=== PATIENT | male | born 1945 | race Caucasian/White ===

== ENCOUNTER → 2017-04-13 | Outpatient (CLI) | payer BC ==
[~2017-04-13] MED LIST: AMLO-110 PO; CHOL20007 PO; LANS15CA15 PO; LPT10 PO; MULTTAB58 PO; NEPA0.6D OPL; OMEG10007 PO; PRED1SUS3 OPL; PRED1SUS3 OPR; SERT50TA PO; ZOLP10TA6 PO
[2017-04-13 09:57] LABS: ALT/SGPT 25 U/L (12-78); AST/SGOT 16 U/L (15-37); BLOOD UREA NITROGEN 15 mg/dl (7-18); CALCIUM 9.2 mg/dl (8.5-10.1); CARBON DIOXIDE 29 mmol/L (21-32); CHLORIDE 108 mmol/L (98-107); CHOLESTEROL 163 mg/dl (0-200); CREATININE 0.96 mg/dl (0.60-1.40); GLUCOSE 93 mg/dl (70-99); POTASSIUM 3.8 mmol/L (3.5-5.1); SODIUM 143 mmol/L (136-145); TRIGLYCERIDES 99 mg/dl (0-150); VERY LOW DENSITY LIPOPROT CALC 20 mg/dl
[2017-04-13 10:01] LABS: ALKALINE PHOSPHATASE 84 U/L (45-117); CHOLESTEROL/HDL RATIO 2.9; HDL CHOLESTEROL 57 mg/dl; LDL CHOLESTEROL CALCULATED 86 mg/dl
--- NOTE | 2017-04-19 13:17 | CODING QUERY MEDICAL NECESSITY ---
SUPPORTING DIAGNOSIS NEEDED Dr. Craig, A supporting diagnosis is required for the test/procedure performed on this patient in order for us to be reimbursed by the patient's insurance. Please provide a supporting diagnosis for the following test/procedure listed below next to the test name along with your signature. *If there is no additional diagnosis for this patient that would support the following test/procedure please document that below next to the test/procedure. Test(s)/Procedure(s) that require a supporting diagnosis: * [id number] PSA DIAGNOSIS: DATE OF SERVICE: 04/13/17 Provider Signature: Date: Thank you [facility] Information Management Once completed, please kindly fax back to [phone] For questions please call [phone]
== END | disposition home or self-care (01) ==
LOC: C.LAB 07:57
PROVIDERS: ATTEND Internal Medicine
DX: M17.12 Unilateral primary osteoarthritis, left knee (principal); Z12.5 Encounter for screening for malignant neoplasm of prostate

== ENCOUNTER → 2017-05-27 | Day surgery (SDC) | payer BC ==
[2017-05-14 13:11] VITALS: Ht 170.2 cm; Wt 109.1 kg
[~2017-05-27] VITALS: Ht 170.2 cm; Wt 109.1 kg
[~2017-05-27] MED LIST changes: +LIDOCAINE HCL 2% 2 ML VIAL (20MG/ML) ONE; +MIDAZOLAM HCL 1 MG/ML 2ML VIAL ONE; -NEPA0.6D OPL; +ONDANSETRON INJ 2 MG/ML 2 ML VIAL ONE; -PRED1SUS3 OPL; -PRED1SUS3 OPR; +PROPOFOL IV EMULSION 10 MG/ML 20 ML VIAL IV ONE; +SODIUM CHLORIDE 0.9% 500ML 500 ML IV ONE
--- NOTE | 2017-05-27 13:58 | Endo History and Physical ---
History & Physical Date of Service: May 27, 2017. Chief Complaint: screening,history of polyps Referring Physician: Dr. Melquiades Craig History of Present Illness 71 yo CM who presents for screening colonoscopy. Past Medical History Reflux, High Cholesterol, Hypertension Past Surgical History Hx Cardiac Surgery: No Hx Internal Defibrillator: No Hx Pacemaker: No Hx Abdominal Surgery: Yes (APPY, HERNIA REPAIR X4) Hx of Implantable Prosthesis: No Hx Post-Op Nausea and Vomiting: No Hx Cancer Surgery: No Hx Thoracic Surgery: No Hx Orthopedic: Yes (RT TKA) Hx Urinary Tract Surgery: No Family History Polyp Social History Smoking Status: Never Smoker Hx Substance Use: No Hx Alcohol Use: No Allergies Coded Allergies: Telmisartan (Verified Allergy, Intermediate, Throat pain and fever, ) Bupropion (Verified Allergy, Unknown, TWITCHING/JITTERY, 05/14/17) Metoprolol (Verified Allergy, Unknown, TWITCHING, 05/14/17) Valsartan (Verified Allergy, Unknown, ., 05/14/17) Current Medications Reported Home Medications Medications Dose Route/Sig Max Daily Dose Days Date Category Vitamin D3 (Cholecalciferol) 2,000 Unit Tab 1 Tab PO QAM 05/14/17 Reported [place]-3 (Fish Oil) 1 Ea Cap 1 Cap PO QAM 05/14/17 Reported Multivitamin (Multiple Vitamin) 1 Tab Tab 1 Tab PO QAM 05/14/17 Reported Prevacid (Lansoprazole) 15 Mg Cap 15 Mg PO QAM 11/13/14 Reported Norvasc (Amlodipine Besylate) 5 Mg Tab 5 Mg PO QAM 11/13/14 Reported Atorvastatin Calcium (Atorvastatin) 10 Mg Tab 10 Mg PO QAM 11/13/14 Reported Zolpidem Tartrate 10 Mg Tab 10 Mg PO HS 11/13/14 Reported Zoloft (Sertraline HCl) 50 Mg Tab 75 Mg PO QAM 11/13/14 Reported Vital Signs Weight (Kilograms): 109.09 Height (Feet): 5 Height (Inches): 7 Physical Exam General Appearance: WD/WN, no apparent distress Respiratory/Chest: Auscultation: breath sounds normal Cardiovascular: Heart Auscultation: RRR Abdomen: Bowel Sounds: normal Inspection & Palpation: soft, non-distended, no tenderness, guarding & rebound Assessment and Plan Assessment: 71 yo CM who presents for screening colonoscopy. Plan: Proceed with colonoscopy.
--- NOTE | 2017-05-27 14:46 | Discharge Instructions ---
Endoscopy Patient Instructions Date / Procedure(s) Performed May 27, 2017. Colonoscopy Allergy Information Coded Allergies: Telmisartan (Verified Allergy, Intermediate, Throat pain and fever, ) Bupropion (Verified Allergy, Unknown, TWITCHING/JITTERY, 05/14/17) Metoprolol (Verified Allergy, Unknown, TWITCHING, 05/14/17) Valsartan (Verified Allergy, Unknown, ., 05/14/17) Discharge Date / Findings May 27, 2017. Colon polyp Diverticulosis Internal hemorrhoids Medication Instructions OK to resume all medications today as prescribed Reported Home Medications Medications Dose Route/Sig Max Daily Dose Days Date Category Vitamin D3 (Cholecalciferol) 2,000 Unit Tab 1 Tab PO QAM 05/14/17 Reported [place]-3 (Fish Oil) 1 Ea Cap 1 Cap PO QAM 05/14/17 Reported Multivitamin (Multiple Vitamin) 1 Tab Tab 1 Tab PO QAM 05/14/17 Reported Prevacid (Lansoprazole) 15 Mg Cap 15 Mg PO QAM 11/13/14 Reported Norvasc (Amlodipine Besylate) 5 Mg Tab 5 Mg PO QAM 11/13/14 Reported Atorvastatin Calcium (Atorvastatin) 10 Mg Tab 10 Mg PO QAM 11/13/14 Reported Zolpidem Tartrate 10 Mg Tab 10 Mg PO HS 11/13/14 Reported Zoloft (Sertraline HCl) 50 Mg Tab 75 Mg PO QAM 11/13/14 Reported Provider Instructions Activity Restrictions - No exercising or heavy lifting for 24 hours. - Do not drink alcohol the day of the procedure. - Do not drive a car or operate machinery until the day after the procedure. - Do not make any important decisions or sign important papers in 24 hours after the procedure. Following Day: - Return to full activity which may include returning to work/school. Diet Start your diet with liquids and light foods (jello, soup, juice, toast). Then eat your usual diet if not nauseated. Treatment For Common After Affects For mild abdominal pain, bloating, or excessive gas: - Rest - Eat lightly - Lie on right side Follow-Up Information Follow-up with Dr. Melquiades Craig as scheduled Anesthesia Information What You Should Know You have had a procedure that required some medicine to reduce anxiety and discomfort. This treatment is called moderate sedation. After receiving the treatment, you may be sleepy, but you will be able to breathe on your own. The effects of the treatment may last for several hours. Follow these instructions along with Activity/Diet recommendations noted above: * Do NOT do anything where dizziness or clumsiness would be dangerous. * Rest quietly at home today, then you can be up and about tomorrow. * Have a responsible person stay with you the rest of today. * You may have had an I.V. today. If so, you may take the dressing off later today. Recommendations Call your doctor if: * Trouble breathing * Continuous vomiting for more than 24 hours * Temperature above 101 degrees * Severe abdominal pain or bloating * Pain not relieved by pain medicine ordered * There is increased drainage or redness from any incision * A large amount of rectal bleeding greater than 2-3 tablespoons. (If you had a polyp/s removed or have hemorrhoids, a small amount of blood - from the rectum is to be expected.) * You have any unanswered questions or concerns. IN THE EVENT OF A SERIOUS EMERGENCY, GO TO THE NEAREST EMERGENCY ROOM Your discharge instructions were prepared by provider Eugene Fairbanks. Patient Instructions Signature Page Jf Linder Patient (or Guardian) Signature/Date: I have read and understand the instructions given to me by my caregivers. Caregiver/RN/Doctor Signature/Date: The above-named patient and/or guardian has received patient instructions on this date. + Original Patient Signature Page (only) stays with chart. Please make copy for patient.
--- NOTE | 2017-05-27 14:50 | GI REPORT ---
Procedure Date: 05/27/2017 2:26 PM Procedure: Colonoscopy Indications: Screening for colorectal malignant neoplasm Medicines: Monitored Anesthesia Care Complications: No immediate complications. Estimated Blood Loss: Estimated blood loss: none. Procedure: Pre-Anesthesia Assessment: - Prior to the procedure, a History and Physical was performed, and patient medications and allergies were reviewed. The patient's tolerance of previous anesthesia was also reviewed. The risks and benefits of the procedure and the sedation options and risks were discussed with the patient. All questions were answered, and informed consent was obtained. Prior Anticoagulants: The patient has taken no previous anticoagulant or antiplatelet agents. ASA Grade Assessment: II - A patient with mild systemic disease. After reviewing the risks and benefits, the patient was deemed in satisfactory condition to undergo the procedure. After I obtained informed consent, the scope was passed under direct vision. Throughout the procedure, the patient's blood pressure, pulse, and oxygen saturations were monitored continuously. The On-site loaner was introduced through the anus and advanced to the terminal ileum. The colonoscopy was performed without difficulty. The patient tolerated the procedure well. The quality of the bowel preparation was good. The terminal ileum, ileocecal valve, appendiceal orifice, and rectum were photographed. Findings: A 3 mm polyp was found in the descending colon. The polyp was sessile. The polyp was removed with a cold biopsy forceps. Resection and retrieval were complete. Multiple small-mouthed diverticula were found in the sigmoid colon. Non-bleeding internal hemorrhoids were found during retroflexion. The hemorrhoids were small. Impression: - One 3 mm polyp in the descending colon, removed with a cold biopsy forceps. Resected and retrieved. - Diverticulosis in the sigmoid colon. - Non-bleeding internal hemorrhoids. Recommendation: - Resume previous diet. - Continue present medications. - Repeat colonoscopy for surveillance based on pathology results. - Return to primary care physician as previously scheduled. Eugene Fairbanks, DO 05/27/2017 2:49:49 PM This report has been signed electronically. Note Initiated On: 05/27/2017 2:26 PM I attest to the content of the Intraoperative Record and orders documented therein, exceptions below
--- NOTE | 2017-05-27 15:01 | Anesthesiology Progress Note ---
Anesthesia Post Op Note Date & Time May 27, 2017 at 15:00 Vital Signs Pain Intensity: 0 Vital Signs Past 12 Hours Date Time Temp Pulse Resp B/P (MAP) Pulse Ox O2 Delivery O2 Flow Rate FiO2 05/27/17 14:49 71 16 136/69 (91) 95 Room Air 05/27/17 13:57 37 85 20 147/69 (95) 95 Room Air Notes Mental Status: alert / awake / arousable, participated in evaluation Pt Amnestic to Procedure: Yes Nausea / Vomiting: adequately controlled Pain: adequately controlled Airway Patency, RR, SpO2: stable & adequate BP & HR: stable & adequate Hydration State: stable & adequate Anesthetic Complications: no major complications apparent
[2017-05-27 15:20] VITALS: BP 120/71; PULSE 67; O2SAT 93
== END | disposition home or self-care (01) ==
LOC: C.GI 13:29
PROVIDERS: ATTEND Internal Medicine
DX: Z12.11 Encounter for screening for malignant neoplasm of colon (principal); D12.4 Benign neoplasm of descending colon; K64.8 Other hemorrhoids; K57.92 Diverticulitis of intestine, part unspecified, without perforation or abscess without bleeding

== ENCOUNTER 2017-09-11 00:15 | Observation (INO) | payer BC ==
[~2017-09-11] VITALS: Ht 170.2 cm; Wt 112.1 kg
[~2017-09-11 00:15] MED LIST changes: -AMLO-110 PO; +AMLO5TAB3 PO; -LIDOCAINE HCL 2% 2 ML VIAL (20MG/ML) ONE; -MIDAZOLAM HCL 1 MG/ML 2ML VIAL ONE; -ONDANSETRON INJ 2 MG/ML 2 ML VIAL ONE; -PROPOFOL IV EMULSION 10 MG/ML 20 ML VIAL IV ONE; -SODIUM CHLORIDE 0.9% 500ML 500 ML IV ONE
--- NOTE | 2017-09-11 00:15 | NUR ---
OBS: Patient is AAOX4 and resting comfortably in bed. Vitals are WNL with the exception of low O2 sats when patient is taking dilaudid for pain. Patient states his pain has increased since this evening to right flank and back and rates pain at 4 out of 10. Patient refused pain medication at this time. Patient is NPO except for meds. Patient is independent in room and is able to void into urinal or use strainer for urinating. Patient has NSS + 20 KCl running at 100 in the right AC. IV site is patent and asymptomatic. Patient's discharge plans are uncertain at this time. Will monitor.
--- NOTE | 2017-09-11 00:15 | NUR ---
OBS: Patient AAOX4. Vitals WNL except for low O2 sats when patient is on Dilaudid prn for pain. Patient is complaining of right flank pain that radiates to the back. Patient is independent and can use urinal or toilet. Patient is capable of straining his urine. Patient is NPO except for meds. Patient has IVF of NSS + 20 KCl running at 100ml/hr in right AC. IV site is patent and asymptomatic. Patient is not taking any pain prn meds at this time. Discharge plans are uncertain at this time. Will monitor.
[2017-09-11] MEDS ORDERED: SODIUM CHLORIDE 0.9% 1000ML 1,000 ML IV STA (00:27)
[2017-09-11] MEDS ORDERED: MoRPHine SULFATE 10 MG/ML CARP/VIAL IV STA ×2 (00:27→01:23)
[2017-09-11] MEDS ORDERED: ONDANSETRON INJ 2 MG/ML 2 ML VIAL IV STA (00:27)
--- NOTE | 2017-09-11 00:30 | EMERGENCY ROOM VISIT NOTE ---
History Report prepared by Tor: Martín Clay Under the Supervision of: Dr. Charli Henry M.D. First contact with patient: 00:20 Chief Complaint: KIDNEY STONE Stated Complaint: ABDOMINAL PAIN History of Present Illness The patient is a 72 year old male who presents to the Emergency Room with complaints of constant right flank pain that began at 2030. He rates his discomfort as an 8/10 in severity. The patient states that he has been nauseous and has vomited multiple times. He states that the pain is currently radiating to the right lower quadrant of his abdomen. The patient states that he took an Betzy seltzer for his symptoms, but denies any relief of symptoms. He denies diarrhea, urinary symptoms, rashes, and leg swelling. The patient reports a history of an appendectomy and four hernia repairs. He denies a history of kidney stones, smoking, and aorta problems. Source of History: patient Onset: 2029 Position: other (right flank) Symptom Intensity: 8/10 Timing: constant Associated Symptoms: + nausea, + vomiting, + abdominal pain, No diarrhea, No urinary symptoms, No rash Review of Systems See HPI for pertinent positives & negatives. A total of 10 systems reviewed and were otherwise negative. Past Medical & Surgical Medical Problems: (1) Cataract (2) Hydronephrosis with obstructing calculus (3) Hypertension (4) PNA (pneumonia) Surgical Problems: (1) H/O hernia repair (2) History of appendectomy (3) History of knee replacement Family History Diabetes mellitus FH: lung disease FHx: cancer FHx: gallbladder disease FHx: heart disease Hypertension Social History Smoking Status: Never Smoker Smokeless Tobacco Use: No Alcohol Use: none Drug Use: none Marital Status: Housing Status: lives with significant other Occupation Status: retired Current/Historical Medications Scheduled Amlodipine (Norvasc), 5 MG PO QAM Atorvastatin (Atorvastatin Calcium), 10 MG PO QAM Cholecalciferol (Vitamin D3), 2,000 UNITS PO QAM Fish Oil ([place]-3), 1 CAP PO QAM Lansoprazole (Prevacid), 15 MG PO QAM Multiple Vitamin (Multivitamin), 1 TAB PO QAM Sertraline (Zoloft), 75 MG PO QAM Zolpidem Tartrate (Zolpidem Tartrate), 10 MG PO HS Allergies Coded Allergies: Telmisartan (Verified Allergy, Intermediate, Throat pain and fever, ) Bupropion (Verified Allergy, Unknown, TWITCHING/JITTERY, 05/14/17) Metoprolol (Verified Allergy, Unknown, TWITCHING, 05/14/17) Valsartan (Verified Allergy, Unknown, ., 05/14/17) Physical Exam Vital Signs Date Time Temp Pulse Resp B/P (MAP) Pulse Ox O2 Delivery O2 Flow Rate FiO2 09/11/17 03:20 78 20 138/80 92 Room Air 09/11/17 02:18 64 20 151/79 95 Room Air 09/11/17 01:12 73 20 171/89 95 Room Air 09/11/17 00:18 36.7 63 18 168/83 95 Room Air Physical Exam GENERAL: Patient is uncomfortable appearing and in moderate distress. HEENT: No acute trauma, normocephalic atraumatic, mucous membranes moist, no nasal congestion, no scleral icterus. NECK: No stridor, no adenopathy, no meningismus, trachea is midline. LUNGS: No dyspnea. Clear to auscultation and equal bilaterally. No wheeze, no rhonchi. HEART: Regular rate and rhythm. No murmurs, rubs, gallops appreciated. ABDOMEN: Soft, nontender, bowel sounds positive, no masses appreciated, no peritonitis. BACK: No midline tenderness, no CVA tenderness EXTREMITIES: Normal motion all extremities, no cyanosis, no edema. NEUROLOGIC: Alert and oriented, no acute motor or sensory deficits, no focal weakness, cranial nerves grossly intact. SKIN: No rash, no jaundice, no diaphoresis. Medical Decision & Procedures ER Provider Diagnostic Interpretation: Radiology results and stated below per my review and radiologist interpretation: CT ABDOMEN & PELVIS Without Contrast: 7 mm stone in the proximal right ureter causing mild right-sided hydronephrosis and prominent perinephric stranding. No hydronephrosis or stone on the left. Mild nonspecific left perinephric stranding. Prominence of the bladder wall may be accentuated by under distention. Please correlate with urinalysis Small hiatal hernia. Calcifications in the prostate. Small fat-containing inguinal hernias. Diverticulosis without evidence of diverticulitis. No bowel obstruction ore inflammation. Status post appendectomy. Probable punctuate bone islands in the inferior right pubic ramus. Right hydrocele partially visualized. Radiologist: Perez Rojas M.D. Laboratory Results 09/11/17 00:32 Red Blood Count 4.52, Mean Corpuscular Volume 93.4, Mean Corpuscular Hemoglobin 31.4, Mean Corpuscular Hemoglobin Concent 33.6, Mean Platelet Volume 10.4, Neutrophils (%) (Auto) 80.8, Lymphocytes (%) (Auto) 12.9, Monocytes (%) (Auto) 5.1, Eosinophils (%) (Auto) 0.7, Basophils (%) (Auto) 0.3, Neutrophils # (Auto) 9.60, Lymphocytes # (Auto) 1.53, Monocytes # (Auto) 0.61, Eosinophils # (Auto) 0.08, Basophils # (Auto) 0.03 09/11/17 00:32 Test 09/11/17 00:32 09/11/17 00:45 White Blood Count 11.87 K/uL (4.8-10.8) Red Blood Count 4.52 M/uL (4.7-6.1) Hemoglobin 14.2 g/dL (14.0-18.0) Hematocrit 42.2 % (42-52) Mean Corpuscular Volume 93.4 fL (80-100) Mean Corpuscular Hemoglobin 31.4 pg (25-34) Mean Corpuscular Hemoglobin Concent 33.6 g/dl (32-36) Platelet Count 199 K/uL (130-400) Mean Platelet Volume 10.4 fL (7.4-10.4) Neutrophils (%) (Auto) 80.8 % Lymphocytes (%) (Auto) 12.9 % Monocytes (%) (Auto) 5.1 % Eosinophils (%) (Auto) 0.7 % Basophils (%) (Auto) 0.3 % Neutrophils # (Auto) 9.60 K/uL (1.4-6.5) Lymphocytes # (Auto) 1.53 K/uL (1.2-3.4) Monocytes # (Auto) 0.61 K/uL (0.11-0.59) Eosinophils # (Auto) 0.08 K/uL (0-0.5) Basophils # (Auto) 0.03 K/uL (0-0.2) RDW Standard Deviation 47.8 fL (36.4-46.3) RDW Coefficient of Variation 14.0 % (11.5-14.5) Immature Granulocyte % (Auto) 0.2 % Immature Granulocyte # (Auto) 0.02 K/uL (0.00-0.02) Anion Gap 7.0 mmol/L (3-11) Est Creatinine Clear Calc Drug Dose 65.5 ml/min Estimated GFR () 69.1 Estimated GFR (Non- 59.6 BUN/Creatinine Ratio 15.2 (10-20) Calcium Level 9.2 mg/dl (8.5-10.1) Total Bilirubin 0.3 mg/dl (0.2-1) Direct Bilirubin < 0.1 mg/dl (0-0.2) Aspartate Amino Transf (AST/SGOT) 15 U/L (15-37) Alanine Aminotransferase (ALT/SGPT) 21 U/L (12-78) Alkaline Phosphatase 97 U/L (45-117) Total Protein 7.6 gm/dl (6.4-8.2) Albumin 3.6 gm/dl (3.4-5.0) Lipase 149 U/L (73-393) Urine Color YELLOW Urine Appearance CLEAR (CLEAR) Urine pH 6.5 (4.5-7.5) Urine Specific [place] 1.018 (1.000-1.030) Urine Protein NEG (NEG) Urine Glucose (UA) NEG (NEG) Urine Ketones NEG (NEG) Urine Occult Blood 1+ (NEG) Urine Nitrite NEG (NEG) Urine Bilirubin NEG (NEG) Urine Urobilinogen NEG (NEG) Urine Leukocyte Esterase NEG (NEG) Urine WBC (Auto) 1-5 /hpf (0-5) Urine RBC (Auto) 0-4 /hpf (0-4) Urine Hyaline Casts (Auto) 0 /lpf (0-5) Urine Epithelial Cells (Auto) 5-10 /lpf (0-5) Urine Bacteria (Auto) NEG (NEG) Laboratory results as reviewed by me. Medications Administered Medications (Trade) Dose Ordered Sig/Dorita Route Start Time Stop Time Status Last Admin Dose Admin Ondansetron HCl (Zofran Inj) 4 mg NOW STAT IV 09/11/17 00:27 09/11/17 00:28 DC 09/11/17 00:43 4 MG Sodium Chloride 1,000 ml @ 999 mls/hr Q1H1M STAT IV 09/11/17 00:27 09/11/17 01:27 DC 09/11/17 00:27 999 MLS/HR Morphine Sulfate (MoRPHine SULFATE INJ) 2 mg STK-MED ONCE .ROUTE 09/11/17 00:37 09/11/17 00:38 DC 09/11/17 00:43 2 MG Morphine Sulfate (MoRPHine SULFATE INJ) 4 mg STK-MED ONCE .ROUTE 09/11/17 00:38 09/11/17 00:39 DC 09/11/17 00:43 4 MG Tamsulosin HCl (Flomax Cap) 0.4 mg NOW ONCE PO 09/11/17 01:30 09/11/17 01:31 DC 09/11/17 01:30 0.4 MG Morphine Sulfate (MoRPHine SULFATE INJ) 2 mg STK-MED ONCE .ROUTE 09/11/17 01:26 09/11/17 01:27 DC 09/11/17 01:30 2 MG Morphine Sulfate (MoRPHine SULFATE INJ) 4 mg STK-MED ONCE .ROUTE 09/11/17 01:27 09/11/17 01:28 DC 09/11/17 01:30 4 MG Hydromorphone HCl (Dilaudid Inj) 1 mg NOW STAT IV 09/11/17 01:48 09/11/17 01:49 DC 09/11/17 01:57 1 MG ED Course 0024: The patient was evaluated in room B03B. A complete history and physical exam was performed. 0027: Ordered Sodium Chloride 1000 ml @ 999 mls/hr IV, Zofran Injection 4 mg IV , Morphine Sulfate 6 mg IV. 0121: I reevaluated the patient and he notes his flank pain is mildly increased after initially going away. I discussed his findings on catscan and labs. I will give him more pain medication and watch him longer. 0123: Ordered Morphine Sulfate 6 mg IV. 0130: Ordered Flomax Cap 0.4 mg PO. 0146: I reevaluated the patient and he notes his pain increased more. Discussed another dose of pain medications and possible hospitalist evaluation. 0148: Ordered Dilaudid Injection 1 mg IV. 0227: I discussed the patients case with Dr. Allen, [facility] Hospitalist. He understands the patients condition and agrees to accept the patient. The patient will be further evaluated. Medical Decision Differential: Renal Colic, Pyelonephritis, Hydronephrosis, Appendicitis, Diverticulitis, Retroperitoneal Bleed/Infection, Aortic Pathology, MSK, Neurologic Pathology, amongst other pathologies entertained. 72 yr old male with acute right flank pain and vomiting this evening. No clear definitive previous stone diagnosis per patient thus went ahead with CT to rule out other pathology as well. CT with moderate sized right prox ureteral stone with hydro. Attempted to control pain with 3 rounds IV narcotics with modest benefit but continued pain and developed some mild hypoxia requiring NC O2. No evidence infection by UA. Cr OK. Hydrated and Given Flomax. With persistent pain will need to come in for further treatment/monitoring. Medication Reconcilliation Current Medication List: was personally reviewed by me Blood Pressure Screening Patient's blood pressure: Elevated blood pressure Blood pressure disposition: Referred to PCP Consults Time Called: 224 Consulting Physician: Dr. Allen, [facility] Hospitalist Returned Call: [phone] I discussed the patients case with Dr. Allen [facility] Hospitalist. He understands the patients condition and agrees to accept the patient. The patient will be further evaluated. Impression Primary Impression: Right ureteral stone Additional Impressions: Hydronephrosis, right Intractable pain Scribe Attestation The scribe's documentation has been prepared under my direction and personally reviewed by me in its entirety. I confirm that the note above accurately reflects all work, treatment, procedures, and medical decision making performed by me. Departure Information Dispostion Being Evaluated By Hospitalist Referrals Melquiades Craig M.D. (PCP) Patient Instructions My [facility] Problem Qualifiers
[2017-09-11] MEDS ORDERED: MoRPHine SULFATE 2 MG/ML CARP ONE ×2 (00:37→01:26)
[2017-09-11] MEDS ORDERED: MoRPHine SULFATE 4 MG/ML 1 ML CARP\\VIAL ONE ×2 (00:38→01:27)
[2017-09-11 00:44] LABS: BASO % 0.3 %; BASO ABS # 0.03 K/uL (0-0.2); EOS % 0.7 %; EOS ABS # 0.08 K/uL (0-0.5); HEMATOCRIT 42.2 % (42-52); HEMOGLOBIN 14.2 g/dL (14.0-18.0); IG# 0.02 K/uL (0.00-0.02); LYMPH % 12.9 %; LYMPH ABS # 1.53 K/uL (1.2-3.4); MEAN CELL VOLUME 93.4 fL (80-100); MEAN CORPUSCULAR HEMOGLOBIN 31.4 pg (25-34); MEAN CORPUSCULAR HGB CONC 33.6 g/dl (32-36); MEAN PLATELET VOLUME 10.4 fL (7.4-10.4); MONO % 5.1 %; MONO ABS # 0.61 K/uL (0.11-0.59); NEUT % 80.8 %; PLATELET COUNT 199 K/uL (130-400); RED CELL DISTRIBUTION WIDTH SD 47.8 fL (36.4-46.3); WHITE BLOOD COUNT 11.87 K/uL (4.8-10.8)
[2017-09-11 01:05] LABS: ALBUMIN 3.6 gm/dl (3.4-5.0); ALT/SGPT 21 U/L (12-78); AST/SGOT 15 U/L (15-37); BLOOD UREA NITROGEN 18 mg/dl (7-18); CALCIUM 9.2 mg/dl (8.5-10.1); CARBON DIOXIDE 26 mmol/L (21-32); GLUCOSE 144 mg/dl (70-99); LIPASE 149 U/L (73-393); POTASSIUM 3.5 mmol/L (3.5-5.1); SODIUM 141 mmol/L (136-145)
[2017-09-11 01:08] LABS: ALKALINE PHOSPHATASE 97 U/L (45-117); TOTAL PROTEIN 7.6 gm/dl (6.4-8.2)
[2017-09-11] MEDS ORDERED: TAMSULOSIN HCL 0.4 MG CAP PO ONE (01:30)
[2017-09-11] MEDS ORDERED: HYDROmorphone INJ 1 MG/ML SYR IV STA (01:48)
[2017-09-11] MEDS ORDERED: ALUMINUM/MAGNESIUM/SIMETH (MAALOX MAX) 30 ML UDC PO PRN (03:00)
[2017-09-11] MEDS ORDERED: MAGNESIUM HYDROXIDE SUSP 30 ML UDC PO PRN (03:00)
[2017-09-11] MEDS ORDERED: HYDROmorphone INJ 1 MG/ML SYR IV PRN (03:00)
[2017-09-11] MEDS ORDERED: ONDANSETRON INJ 2 MG/ML 2 ML VIAL IV PRN (03:00)
[2017-09-11] MEDS ORDERED: ACETAMINOPHEN 325 MG TAB PO PRN (03:00)
[2017-09-11 03:30] VITALS: BP 148/86; PULSE 64; TEMP 36.8; O2SAT 97; Ht 170.2 cm; Wt 112.1 kg
--- NOTE | 2017-09-11 03:48 | History and Physical ---
History & Physical Date & Time of Service: Sep 11, 2017 at 03:28 Chief Complaint: Abdominal Pain Primary Care Physician: Melquiades Craig M.D. History of Present Illness Source: patient 72 y/o M Hx HTN, HPL, GERD. Presnts with progressive, severe R sided flank pain radiating into his groin. Pain is accompanied by nausea and a few episodes of vomiting. He denies fevers, rigors, dysuria, gross hematuria. A CT abdomen revealed a 7mm obstructing calculus in the proximal R ureter with accompanying hydronephrosis. Past Medical/Surgical History 1) HTN 2) HPL 3) GERD 4) States he may have passed a stone a few years ago as he had hematuria which resolved spontaneously - believes he felt a stone pass at that time. Family History Diabetes mellitus FH: lung disease FHx: cancer FHx: gallbladder disease FHx: heart disease Hypertension Social History Smoking Status: Never Smoker Smokeless Tobacco Use: No Drug Use: none Marital Status: Housing status: lives with family Occupational Status: retired Immunizations History of Influenza Vaccine: Yes History of Tetanus Vaccine?: Yes History of Pneumococcal: Yes Pneumococcal Date: February 05, 2010 History of Hepatitis B Vaccine: No Multi-Drug Resistant Organisms History of MDRO: No Allergies Coded Allergies: Telmisartan (Verified Allergy, Intermediate, Throat pain and fever, ) Bupropion (Verified Allergy, Unknown, TWITCHING/JITTERY, 05/14/17) Metoprolol (Verified Allergy, Unknown, TWITCHING, 05/14/17) Valsartan (Verified Allergy, Unknown, ., 05/14/17) Home Medications Scheduled Amlodipine (Norvasc), 5 MG PO QAM Atorvastatin (Atorvastatin Calcium), 10 MG PO QAM Cholecalciferol (Vitamin D3), 2,000 UNITS PO QAM Fish Oil ([place]-3), 1 CAP PO QAM Lansoprazole (Prevacid), 15 MG PO QAM Multiple Vitamin (Multivitamin), 1 TAB PO QAM Sertraline (Zoloft), 75 MG PO QAM Zolpidem Tartrate (Zolpidem Tartrate), 10 MG PO HS Review of Systems Constitutional: No fever, No chills, No sweats Eyes: No worsening of vision ENT: No hearing loss, No nasal symptoms Respiratory: No cough, No sputum, No wheezing Cardiovascular: No chest pain, No orthopnea, No PND Abdomen: + pain, + nausea, + vomiting Genitourinary - Male: + problem reported (R flank and groin pain), No hematuria , No dysuria Neurologic: No memory loss, No paralysis, No weakness Psychiatric: No depression symptoms Endocrine: No fatigue Hematologic / Lymphatic: No abnormal bleeding/bruising Integumentary: No rash Allergic / Immunologic: No environmental allergies Physical Exam Vital Signs Date Time Temp Pulse Resp B/P (MAP) Pulse Ox O2 Delivery O2 Flow Rate FiO2 09/11/17 03:20 78 20 138/80 92 Room Air 09/11/17 02:18 64 20 151/79 95 Room Air 09/11/17 01:12 73 20 171/89 95 Room Air 09/11/17 00:18 36.7 63 18 168/83 95 Room Air General Appearance: WD/WN, no apparent distress Head: normocephalic Eyes: normal inspection ENT: normal ENT inspection, pharynx normal Neck: supple, no JVD Respiratory/Chest: chest non-tender, lungs clear, normal breath sounds Cardiovascular: regular rate, rhythm, no edema, no gallop Abdomen/GI: normal bowel sounds, non tender, soft Genitourinary - Male: + pertinent finding (There is mild pain to palpation along the R flank into the RLQ) Back: + right CVA tenderness Extremities/Musculoskelatal: normal inspection, no calf tenderness, normal capillary refill 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1 % Eosinophils (%) (Auto) 0.7 % Basophils (%) (Auto) 0.3 % Neutrophils # (Auto) 9.60 1.4-6.5 K/uL Lymphocytes # (Auto) 1.53 1.2-3.4 K/uL Monocytes # (Auto) 0.61 0.11-0.59 K/uL Eosinophils # (Auto) 0.08 0-0.5 K/uL Basophils # (Auto) 0.03 0-0.2 K/uL RDW Standard Deviation 47.8 36.4-46.3 fL RDW Coefficient of Variation 14.0 11.5-14.5 % Immature Granulocyte % (Auto) 0.2 % Immature Granulocyte # (Auto) 0.02 0.00-0.02 K/uL Sodium Level 141 136-145 mmol/L Potassium Level 3.5 3.5-5.1 mmol/L Chloride Level 108 98-107 mmol/L Carbon Dioxide Level 26 21-32 mmol/L Anion Gap 7.0 3-11 mmol/L Blood Urea Nitrogen 18 7-18 mg/dl Creatinine 1.20 0.60-1.40 mg/dl Est Creatinine Clear Calc Drug Dose 65.5 ml/min Estimated GFR () 69.1 Estimated GFR (Non- 59.6 BUN/Creatinine Ratio 15.2 10-20 Random Glucose 144 70-99 mg/dl Calcium Level 9.2 8.5-10.1 mg/dl Total Bilirubin 0.3 0.2-1 mg/dl Direct Bilirubin < 0.1 0-0.2 mg/dl Aspartate Amino Transf (AST/SGOT) 15 15-37 U/L Alanine Aminotransferase (ALT/SGPT) 21 12-78 U/L Alkaline Phosphatase 97 45-117 U/L Total Protein 7.6 6.4-8.2 gm/dl Albumin 3.6 3.4-5.0 gm/dl Lipase 149 73-393 U/L Urine Color YELLOW Urine Appearance CLEAR CLEAR Urine pH 6.5 4.5-7.5 Urine Specific Mellen 1.018 1.000-1.030 Urine Protein NEG NEG Urine Glucose (UA) NEG NEG Urine Ketones NEG NEG Urine Occult Blood 1+ NEG Urine Nitrite NEG NEG Urine Bilirubin NEG NEG Urine Urobilinogen NEG NEG Urine Leukocyte Esterase NEG NEG Urine WBC (Auto) 1-5 0-5 /hpf Urine RBC (Auto) 0-4 0-4 /hpf Urine Hyaline Casts (Auto) 0 0-5 /lpf Urine Epithelial Cells (Auto) 5-10 0-5 /lpf Urine Bacteria (Auto) NEG NEG Diagnostic Radiology CT abdomen: 7mm obstructing calculus in the proximal R ureter with accompanying hydronephrosis. Impression Assessment and Plan 72 y/o M Hx HTN, HPL, GERD. Presents with progressive, severe R sided flank pain radiating into his groin. Pain is accompanied by nausea and a few episodes of vomiting. He denies fevers, rigors, dysuria, gross hematuria. A CT abdomen revealed a 7mm obstructing calculus in the proximal R ureter with accompanying hydronephrosis. 1) Obstructing calculus - unlikely to pass spontaneously based on size. We will consult urology. He is placed on IVF, narcotics and Flomax. 2) HTN - Norvasc 3) HPL - cont Lipitor Full code - SCDs Total time for this admit including review of labs, meds, imaging - discussion with pt and ER attending - 33 min Level of Care Med/Surg Resuscitation Status FULL RESUSCITATION VTE Prophylaxis VTE Risk Assessment Done? Y/N: Yes Risk Level: Low Given or contraindicated: SCD's
[2017-09-11 03:49] VITALS: BP 148/86; PULSE 71; TEMP 36.8; O2SAT 91
[2017-09-11] MEDS ORDERED: POLYETHYLENE (MIRALAX) 17 GM PACK PO PRN (04:15)
[2017-09-11] MEDS: NSS + 20MEQ KCL 1000ML 1,000 ML IV SCH ×2 (05:06→14:05)
--- NOTE | 2017-09-11 05:13 | NUR ---
OBS: Patient arrived on floor at 0330 tonight. Patient is AAOX4 and vitals WNL. Patient is NPO except for meds. Patient has IVF of Nss + 20 KCl running at 100ml/hr into right hand. IV site is patent and asymptomatic. Patient is not complaining of pain and states the pain completely went away. Patient is independent and can void in toilet. All urine is strained. Patient stated his pain started on his right side and flank which caused nausea when pain occurs. Patient is acclimated to room. Discharge plans uncertain. Will monitor.
[2017-09-11] MEDS ORDERED: IV FLUIDS COMPLETED PRN (05:30)
--- NOTE | 2017-09-11 07:56 | DIAGNOSTIC IMAGING REPORT ---
ABDOMEN AND PELVIS CT WITHOUT CONTRAST CT DOSE: 1833.17 mGy.cm HISTORY: sudden onset right flank pain TECHNIQUE: Multiaxial CT images of the abdomen and pelvis were performed without the use of intravenous and oral contrast according to the standard department stone protocol. A dose lowering technique was utilized adhering to the principles of ALARA. COMPARISON STUDY: Abdomen and pelvis CT 01/04/2010. FINDINGS: Small hiatus hernia. Diverticulosis. No bowel wall thickening or obstruction. The appendix appears surgically absent. Partially visualized small right hydrocele. 7 mm obstructing stone within the proximal right ureter resulting in mild right hydronephrosis and right perinephric stranding. No left-sided hydronephrosis. No left renal calculi. The lung bases are clear. The unenhanced liver, gallbladder, pancreas, and spleen are unremarkable. No retroperitoneal lymphadenopathy. Bladder wall thickening which may be due to underdistention. A few left peripelvic renal cysts. IMPRESSION: 1. A 7 mm stone within the proximal right ureter resulting and mild right hydronephrosis. 2. No bowel wall thickening or obstruction. Electronically signed by: Clive Acosta M.D. 09/11/2017 7:55 AM Dictated Date/Time: 09/11/2017 7:48 AM
--- NOTE | 2017-09-11 08:00 | NUR ---
OBS: Pt. a/ox4, denies pain, independent in the room, voids in urinal, urine being strained. Resting comfortably in bed. Will continue to monitor.
[2017-09-11 08:20] VITALS: BP 124/72; PULSE 61; TEMP 36.8; O2SAT 93
--- NOTE | 2017-09-11 09:08 | DIAGNOSTIC IMAGING REPORT ---
KUB HISTORY: ureteral stone COMPARISON: Abdomen and pelvis CT 09/11/2017. FINDINGS: The bowel gas pattern is unremarkable. There are no dilated loops of small bowel to suggest an obstruction. There is again noted an 8 mm stone within the proximal right ureter at the level of the L2 transverse process. Calcifications in the deep pelvis are consistent with phleboliths. No renal calculi identified. No pneumoperitoneum or pneumatosis. IMPRESSION: No change in the 8 mm proximal right ureteral stone. Electronically signed by: Clive Acosta M.D. 09/11/2017 9:06 AM Dictated Date/Time: 09/11/2017 9:04 AM
[2017-09-11] MEDS: SERTRALINE HCL 50 MG TAB PO SCH (09:12)
[2017-09-11] MEDS: TAMSULOSIN HCL 0.4 MG CAP PO SCH (09:12)
[2017-09-11] MEDS: AMLODIPINE BESYLATE 5 MG TAB PO SCH (09:12)
[2017-09-11] MEDS: PANTOprazole SOD 40 MG TAB PO SCH (09:12)
[2017-09-11] MEDS: ATORVASTATIN 10 MG TAB PO SCH (09:13)
--- NOTE | 2017-09-11 12:00 | NUR ---
OBS: Assessment unchanged. Pt. a/ox4, denies pain, independent in the room, voids in urinal, urine being strained. IVFs infusing per MD order. Resting comfortably in bed. Will continue to monitor.
--- NOTE | 2017-09-11 12:21 | Urology Consultation ---
History General Date of Service: Sep 11, 2017. Primary Care Physician: Melquiades Craig M.D. History of Present Illness 72 y/o male with hx of onset of flank pain yesterday who presented last night with severe pain that has gone away since 4 am . He may have passed one stone in the past. No fever . We discussed the options including a stent salena for eswl or observation and possible ureteroscopy if the stone progresses or a trial of passage w eswl w/o a stent Wednesday if his pain stays under control Imaging Imaging: CT, [facility] Laboratory Labs were reviewed and are within normal limits unless listed below. Labs are available in the chart and at [facility] Problem List Medical Problems: (1) Hydronephrosis, right Status: Acute (2) Intractable pain Status: Acute (3) Right ureteral stone Status: Acute Family History Diabetes mellitus FH: lung disease FHx: cancer FHx: gallbladder disease FHx: heart disease Hypertension Social History Hx Tobacco Use In Past Year?: No Marital status: Housing status: lives with family Occupation status: retired Immunizations History of Influenza Vaccine: Yes History of Tetanus Vaccine?: Yes History of Pneumococcal: Yes Pneumococcal Date: February 05, 2010 History of Hepatitis B Vaccine: No History of MDRO No Allergies Coded Allergies: Telmisartan (Verified Allergy, Intermediate, Throat pain and fever, ) Bupropion (Verified Allergy, Unknown, TWITCHING/JITTERY, 05/14/17) Metoprolol (Verified Allergy, Unknown, TWITCHING, 05/14/17) Valsartan (Verified Allergy, Unknown, ., 05/14/17) Medications Home Medications: Home Meds and Scripts Medications Dose Route/Sig Max Daily Dose Days Date Category Vitamin D3 (Cholecalciferol) 2,000 Unit Tab 2,000 Units PO QAM 05/14/17 Reported [place]-3 (Fish Oil) 1 Ea Cap 1 Cap PO QAM 05/14/17 Reported Multivitamin (Multiple Vitamin) 1 Tab Tab 1 Tab PO QAM 05/14/17 Reported Prevacid (Lansoprazole) 15 Mg Cap 15 Mg PO QAM 11/13/14 Reported Norvasc (Amlodipine Besylate) 5 Mg Tab 5 Mg PO QAM 11/13/14 Reported Atorvastatin Calcium (Atorvastatin) 10 Mg Tab 10 Mg PO QAM 11/13/14 Reported Zolpidem Tartrate 10 Mg Tab 10 Mg PO HS 11/13/14 Reported Zoloft (Sertraline HCl) 50 Mg Tab 75 Mg PO QAM 11/13/14 Reported Inpatient Medications: Current Inpatient Medications Medications (Trade) Dose Ordered Sig/Dorita Route Start Time Stop Time Status Last Admin Dose Admin Amlodipine Besylate (Norvasc Tab) 5 mg QAM PO 09/11/17 09:00 10/11/17 08:59 09/11/17 09:12 5 MG Atorvastatin Calcium (Lipitor Tab) 10 mg QAM PO 09/11/17 09:00 10/11/17 08:59 09/11/17 09:13 10 MG Sertraline HCl (Zoloft Tab) 75 mg QAM PO 09/11/17 09:00 10/11/17 08:59 09/11/17 09:12 75 MG Zolpidem Tartrate (Ambien Tab) 10 mg HS PO 09/11/17 21:00 10/11/17 20:59 Pantoprazole Sodium (Protonix Tab) 40 mg QAM PO 09/11/17 09:00 10/11/17 08:59 09/11/17 09:12 40 MG Acetaminophen (Tylenol Tab) 650 mg Q4H PRN PO 09/11/17 03:00 10/11/17 02:59 Al Hydrox/Mg Hydrox/Simethicone (Maalox Max Susp) 15 ml Q4H PRN PO 09/11/17 03:00 10/11/17 02:59 Magnesium Hydroxide (Milk Of Magnesia Susp) 30 ml Q6H PRN PO 09/11/17 03:00 10/11/17 02:59 Polyethylene (Miralax Powder Packet) 17 gm DAILY PRN PO 09/11/17 04:15 10/11/17 04:14 Ondansetron HCl (Zofran Inj) 4 mg Q6H PRN IV 09/11/17 03:00 10/11/17 02:59 Hydromorphone HCl (Dilaudid Inj) 1 mg Q3H PRN IV 09/11/17 03:00 09/25/17 02:59 Potassium Chloride/Sodium Chloride 1,000 ml @ 100 mls/hr Q10H IV 09/11/17 04:30 09/12/17 00:29 09/11/17 05:06 100 MLS/HR Tamsulosin HCl (Flomax Cap) 0.4 mg QAM PO 09/11/17 09:00 10/11/17 08:59 09/11/17 09:12 0.4 MG Miscellaneous (Iv Fluids Completed) 1 ea PRN PRN N/A 09/11/17 05:30 09/11/18 05:29 Review of Systems Review of Systems Constitutional: No fever Eyes: No see HPI, No blurred vision, No double vision, No eye pain, No loss of night vision, No problem reported Neurological: No see HPI, No dizzy, No passing out, No numbness/tingling, No seizures, No problem reported Endocrine: No see HPI, No excessive thirst, No too hot, No too cold, No tired/ sluggish, No problem reported Gastrointestinal: No see HPI, No abdominal pain, No indigestion, No nausea, No vomiting, No constipation, No diarrhea, No problem reported Cardiovascular: No see HPI, No heart murmur, No chest pain, No angina, No irregular heartbeat, No palpitations, No swelling ankles/feet, No problem reported Respiratory: No see HPI, No shortness of breath, No wheezing, No coughing up blood, No chronic cough, No problem reported Skin: No see HPI, No rash, No boils, No dry skin, No problem reported Blood / Lymphatic: No see HPI, No bleed easily, No bruise easily, No swollen glands, No problem reported Ears / Nose / Throat: No see HPI, No hearing loss, No sinus, No hoarse voice, No sore throat, No problem reported Psychologic / Mental: No see HPI, No nervous, No trouble remembering, No difficulty sleeping, No problem reported Male : + frequent urination, + kidney stones Physical Exam Vital Signs: Vital Signs Past 12 Hours Date Time Temp Pulse Resp B/P (MAP) Pulse Ox O2 Delivery O2 Flow Rate FiO2 09/11/17 08:20 36.8 61 18 124/72 (89) 93 Room Air 09/11/17 08:00 Room Air 09/11/17 03:49 36.8 71 16 148/86 (106) 91 Room Air 09/11/17 03:30 97 Room Air 09/11/17 03:30 36.8 64 16 148/86 97 Room Air 2.0 09/11/17 03:20 78 20 138/80 92 Room Air 09/11/17 02:18 64 20 151/79 95 Room Air 09/11/17 01:12 73 20 171/89 95 Room Air 09/11/17 00:18 36.7 63 18 168/83 95 Room Air Assessment & Plan Assessment & Plan cysto r stent explained alternatives including trial of passage w eswl w/o stent and ureteroscopy
--- NOTE | 2017-09-11 12:28 | Urology Consultation ---
History General Date of Service: Sep 11, 2017. Primary Care Physician: Melquiades Craig M.D. History of Present Illness 72 y/o male presented yesterday evening with severe r flank pain and a 7 to 8 mm proximal r ureteral stone on ct . His pain resolved around 4 am and he is pain free. He may have passed one stone in past . No hematuria or dysuria. we discussed options including observation today and discharge in am for eswl on Wednesday or intervention in am if pain recurs. He agrees to this Imaging Imaging: CT, [facility] Laboratory Labs were reviewed and are within normal limits unless listed below. Labs are available in the chart and at [facility] Problem List Medical Problems: (1) Hydronephrosis, right Status: Acute (2) Intractable pain Status: Acute (3) Right ureteral stone Status: Acute Family History Diabetes mellitus FH: lung disease FHx: cancer FHx: gallbladder disease FHx: heart disease Hypertension Social History Hx Tobacco Use In Past Year?: No Marital status: Housing status: lives with family Occupation status: retired Immunizations History of Influenza Vaccine: Yes History of Tetanus Vaccine?: Yes History of Pneumococcal: Yes Pneumococcal Date: February 05, 2010 History of Hepatitis B Vaccine: No History of MDRO No Allergies Coded Allergies: Telmisartan (Verified Allergy, Intermediate, Throat pain and fever, ) Bupropion (Verified Allergy, Unknown, TWITCHING/JITTERY, 05/14/17) Metoprolol (Verified Allergy, Unknown, TWITCHING, 05/14/17) Valsartan (Verified Allergy, Unknown, ., 05/14/17) Medications Home Medications: Home Meds and Scripts Medications Dose Route/Sig Max Daily Dose Days Date Category Vitamin D3 (Cholecalciferol) 2,000 Unit Tab 2,000 Units PO QAM 05/14/17 Reported [place]-3 (Fish Oil) 1 Ea Cap 1 Cap PO QAM 05/14/17 Reported Multivitamin (Multiple Vitamin) 1 Tab Tab 1 Tab PO QAM 05/14/17 Reported Prevacid (Lansoprazole) 15 Mg Cap 15 Mg PO QAM 11/13/14 Reported Norvasc (Amlodipine Besylate) 5 Mg Tab 5 Mg PO QAM 11/13/14 Reported Atorvastatin Calcium (Atorvastatin) 10 Mg Tab 10 Mg PO QAM 11/13/14 Reported Zolpidem Tartrate 10 Mg Tab 10 Mg PO HS 11/13/14 Reported Zoloft (Sertraline HCl) 50 Mg Tab 75 Mg PO QAM 11/13/14 Reported Inpatient Medications: Current Inpatient Medications Medications (Trade) Dose Ordered Sig/Dorita Route Start Time Stop Time Status Last Admin Dose Admin Amlodipine Besylate (Norvasc Tab) 5 mg QAM PO 09/11/17 09:00 10/11/17 08:59 09/11/17 09:12 5 MG Atorvastatin Calcium (Lipitor Tab) 10 mg QAM PO 09/11/17 09:00 10/11/17 08:59 09/11/17 09:13 10 MG Sertraline HCl (Zoloft Tab) 75 mg QAM PO 09/11/17 09:00 10/11/17 08:59 09/11/17 09:12 75 MG Zolpidem Tartrate (Ambien Tab) 10 mg HS PO 09/11/17 21:00 10/11/17 20:59 Pantoprazole Sodium (Protonix Tab) 40 mg QAM PO 09/11/17 09:00 10/11/17 08:59 09/11/17 09:12 40 MG Acetaminophen (Tylenol Tab) 650 mg Q4H PRN PO 09/11/17 03:00 10/11/17 02:59 Al Hydrox/Mg Hydrox/Simethicone (Maalox Max Susp) 15 ml Q4H PRN PO 09/11/17 03:00 10/11/17 02:59 Magnesium Hydroxide (Milk Of Magnesia Susp) 30 ml Q6H PRN PO 09/11/17 03:00 10/11/17 02:59 Polyethylene (Miralax Powder Packet) 17 gm DAILY PRN PO 09/11/17 04:15 10/11/17 04:14 Ondansetron HCl (Zofran Inj) 4 mg Q6H PRN IV 09/11/17 03:00 10/11/17 02:59 Hydromorphone HCl (Dilaudid Inj) 1 mg Q3H PRN IV 09/11/17 03:00 09/25/17 02:59 Potassium Chloride/Sodium Chloride 1,000 ml @ 100 mls/hr Q10H IV 09/11/17 04:30 09/12/17 00:29 12/23/17 05:06 100 MLS/HR Tamsulosin HCl (Flomax Cap) 0.4 mg QAM PO 09/11/17 09:00 10/11/17 08:59 09/11/17 09:12 0.4 MG Miscellaneous (Iv Fluids Completed) 1 ea PRN PRN N/A 09/11/17 05:30 09/11/18 05:29 Review of Systems Review of Systems Constitutional: No fever Eyes: No see HPI, No blurred vision, No double vision, No eye pain, No loss of night vision, No problem reported Neurological: No see HPI, No dizzy, No passing out, No numbness/tingling, No seizures, No problem reported Gastrointestinal: No see HPI, No abdominal pain, No indigestion, No nausea, No vomiting, No constipation, No diarrhea, No problem reported Cardiovascular: No see HPI, No heart murmur, No chest pain, No angina, No irregular heartbeat, No palpitations, No swelling ankles/feet, No problem reported Respiratory: No see HPI, No shortness of breath, No wheezing, No coughing up blood, No chronic cough, No problem reported Skin: No see HPI, No rash, No boils, No dry skin, No problem reported Musculoskeletal: No see HPI, No joint pain, No neck pain, No back pain, No arthritis, No problem reported Blood / Lymphatic: No see HPI, No bleed easily, No bruise easily, No swollen glands, No problem reported Ears / Nose / Throat: No see HPI, No hearing loss, No sinus, No hoarse voice, No sore throat, No problem reported Male : + kidney stones Physical Exam Vital Signs: Vital Signs Past 12 Hours Date Time Temp Pulse Resp B/P (MAP) Pulse Ox O2 Delivery O2 Flow Rate FiO2 09/11/17 08:20 36.8 61 18 124/72 (89) 93 Room Air 09/11/17 08:00 Room Air 09/11/17 03:49 36.8 71 16 148/86 (106) 91 Room Air 09/11/17 03:30 97 Room Air 09/11/17 03:30 36.8 64 16 148/86 97 Room Air 2.0 09/11/17 03:20 78 20 138/80 92 Room Air 09/11/17 02:18 64 20 151/79 95 Room Air 09/11/17 01:12 73 20 171/89 95 Room Air Physical Exam: General Appearance: no apparent distress Eyes: bilateral eyes normal inspection, bilateral eyes PERRL, bilateral eyes EOMI ENT: normal ENT inspection, hearing grossly normal, TMs normal, pharynx normal Neck: supple, no adenopathy, thyroid normal, no JVD Respiratory/Chest: chest non-tender, lungs clear, normal breath sounds, no respiratory distress, no accessory muscle use Cardiovascular: regular rate, rhythm, no edema, no gallop, no JVD, no murmur Extremities: normal range of motion, non-tender, normal inspection, no pedal edema, no calf tenderness, normal capillary refill Neurologic/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
[2017-09-11 15:00] VITALS: BP 108/65; PULSE 67; TEMP 36.9; O2SAT 90
--- NOTE | 2017-09-11 16:00 | NUR ---
OBS/ID: Patient is alert and oriented. Overall negative assessment. He denies pain complaints at this time. Patient remains NPO except meds in case of procedure in AM. Will continue to monitor.
--- NOTE | 2017-09-11 17:14 | Progress Note ---
Progress Note Date of Service Sep 11, 2017. Progress Note 72 y/o M Hx HTN, HPL, GERD. Presents with progressive, severe R sided flank pain radiating into his groin. Pain is accompanied by nausea and a few episodes of vomiting. He denies fevers, rigors, dysuria, gross hematuria. A CT abdomen revealed a 7mm obstructing calculus in the proximal R ureter with accompanying hydronephrosis. 1) Obstructing calculus -- 7 to 8 mm proximal r ureteral stone on ct . -- Pain resolved around 4 am. -- He may have passed one stone in past . -- No hematuria or dysuria. -- observation today and discharge in am for eswl on Wednesday or intervention in am if pain recurs. -- Appreciated urology input. 2) HTN - Norvasc 3) HPL - cont Lipitor Full code - SCDs
--- NOTE | 2017-09-11 20:16 | NUR ---
OBS: Patient requested Tylenol for back complaints which he is unsure of whether or not is related to laying in bed for too long or kidney stone pain returning. Otherwise overall negative assessment remains intact. IVF infusing without issue. Patient voiding without issue. Nothing strained from urine up to this time. Will reassess pain as ordered.
[2017-09-11] MEDS ORDERED: ZOLPIDEM TARTRATE 10 MG TAB PO SCH (21:00)
[2017-09-11] MEDS ORDERED: NURSING VERBAL MED ORDER ONE (22:15)
[2017-09-11] MEDS: HYDROmorphone INJ 1 MG/ML SYR IV PRN (22:21)
[2017-09-11 22:48] VITALS: BP 151/78; PULSE 67; TEMP 36.9; O2SAT 90
[2017-09-12 00:20] VITALS: O2SAT 97
[2017-09-12 07:00] VITALS: BP 156/93; PULSE 67; TEMP 37.4; O2SAT 90
[2017-09-12] MEDS: HYDROmorphone INJ 1 MG/ML SYR IV PRN (07:39)
[2017-09-12] MEDS: AMLODIPINE BESYLATE 5 MG TAB PO SCH (07:53)
[2017-09-12] MEDS: TAMSULOSIN HCL 0.4 MG CAP PO SCH (07:53)
[2017-09-12] MEDS: ATORVASTATIN 10 MG TAB PO SCH (07:53)
[2017-09-12] MEDS: PANTOprazole SOD 40 MG TAB PO SCH (07:54)
[2017-09-12] MEDS: SERTRALINE HCL 50 MG TAB PO SCH (07:54)
--- NOTE | 2017-09-12 07:57 | DIAGNOSTIC IMAGING REPORT ---
KUB CLINICAL HISTORY: ureteral stone COMPARISON STUDY: 09/11/2017 FINDINGS: There is no pathologic bowel dilatation. No renal calculi are visualized. There is 8 mm calcification projected at the level of the right L2 transverse process. This likely corresponds the previously described proximal right ureteral calculus. IMPRESSION: 1. No evidence of pathologic bowel dilatation 2. 8mm proximal right ureteral calculus Electronically signed by: López Allen M.D. 09/12/2017 7:55 AM Dictated Date/Time: 09/12/2017 7:54 AM
--- NOTE | 2017-09-12 08:00 | NUR ---
OBS NOTE: Patient is alert and oriented x 4. Off floor at this time for procedure.
--- NOTE | 2017-09-12 09:01 | Progress Note ---
Subjective Date of Service: Sep 12, 2017. Subjective Pt evaluation today including: conversation w/ patient, physical exam, chart review, review of studies Pt with ongoing pain since last pm and requiing pain meds including this am. Discussed and will proceed to r stent >He understands he may need an eswl Problem List Medical Problems: (1) Hydronephrosis, right Status: Acute (2) Intractable pain Status: Acute (3) Right ureteral stone Status: Acute Objective Vital Signs Date Time Temp Pulse Resp B/P (MAP) Pulse Ox O2 Delivery O2 Flow Rate FiO2 09/12/17 08:00 Room Air 09/12/17 07:00 37.4 67 18 156/93 (114) 90 Room Air 09/12/17 00:20 97 Room Air 2.0 Nasal Cannula 09/11/17 22:48 36.9 67 16 151/78 (102) 90 Room Air 09/11/17 16:00 Room Air 09/11/17 15:00 36.9 67 18 108/65 (79) 90 Room Air Physical Exam Comments: r flank pain to percussion Assessment and Plan r ureteral stent
[2017-09-12] MEDS ORDERED: CONRAY 30% 150ML BOTTLE ONE (09:10)
[2017-09-12] MEDS ORDERED: PHENYLEPHRINE 100MCG/ML 5ML SYR IV PRN (09:15)
[2017-09-12] MEDS ORDERED: EpHEDrine SULFATE INJ 50 MG/ML AMP IV PRN (09:15)
[2017-09-12] MEDS ORDERED: HYDROmorphone INJ 1 MG/ML SYR IV PRN (09:15)
[2017-09-12] MEDS ORDERED: ONDANSETRON INJ 2 MG/ML 2 ML VIAL IV PRN (09:15)
[2017-09-12] MEDS ORDERED: FENTANYL CITRATE INJ 50 MCG/1 ML 2 ML VIAL IV PRN (09:15)
[2017-09-12] MEDS ORDERED: ATROPINE SULFATE 0.1 MG/ML 5ML SYR IV PRN (09:15)
[2017-09-12] MEDS ORDERED: MIDAZOLAM HCL 1 MG/ML 2ML VIAL ONE (09:31)
[2017-09-12] MEDS ORDERED: PROPOFOL IV EMULSION 10 MG/ML 20 ML VIAL IV ONE (09:31)
[2017-09-12] MEDS ORDERED: FENTANYL CITRATE INJ 50 MCG/1 ML 2 ML VIAL ONE ×2 (09:31→10:12)
[2017-09-12] MEDS ORDERED: LIDOCAINE HCL 2% 2 ML VIAL (20MG/ML) ONE (09:31)
[2017-09-12] MEDS ORDERED: CIPROFLOXACIN 400MG / 200ML D5W ONE (09:34)
[2017-09-12] MEDS ORDERED: EpHEDrine SULFATE 50MG/5ML SYR ONE (09:59)
[2017-09-12] MEDS ORDERED: ONDANSETRON INJ 2 MG/ML 2 ML VIAL ONE (10:02)
--- NOTE | 2017-09-12 10:25 | DIAGNOSTIC IMAGING REPORT ---
RETROGRADE INCLUDES KUB CLINICAL HISTORY: Stent placement COMPARISON STUDY: CT scan dated 09/11/2017 FINDINGS: 7 seconds of fluoroscopic time was utilized. A single intraoperative fluoroscopic spot images provided for interpretation. This reveals a catheter within a lower pole calyx. There is a bifid renal collecting system. The distal portion of the catheter is not included on the provided images. There is mild fullness of the collecting system. IMPRESSION: 1. Mild fullness of the right renal collecting system 2. Bifid renal collecting system. Catheter within a lower pole calyx. Electronically signed by: López Allen M.D. 09/12/2017 10:23 AM Dictated Date/Time: 09/12/2017 10:21 AM
--- NOTE | 2017-09-12 10:59 | Anesthesiology Progress Note ---
Anesthesia Post Op Note Date & Time Sep 12, 2017 at 10:59 Vital Signs Pain Intensity: 0 Vital Signs Past 12 Hours Date Time Temp Pulse Resp B/P (MAP) Pulse Ox O2 Delivery O2 Flow Rate FiO2 09/12/17 10:55 94 16 139/66 93 Nasal Cannula 3 09/12/17 10:45 84 14 133/68 93 Nasal Cannula 3 09/12/17 10:35 85 14 127/67 92 Oxymask 10 09/12/17 10:28 36.6 90 12 130/64 95 Oxymask 10 09/12/17 08:00 Room Air 09/12/17 07:00 37.4 67 18 156/93 (114) 90 Room Air 09/12/17 00:20 97 Room Air 2.0 Nasal Cannula Notes Mental Status: alert / awake / arousable, participated in evaluation Pt Amnestic to Procedure: Yes Nausea / Vomiting: adequately controlled Pain: adequately controlled Airway Patency, RR, SpO2: stable & adequate BP & HR: stable & adequate Hydration State: stable & adequate Anesthetic Complications: no major complications apparent
--- NOTE | 2017-09-12 11:03 | [facility] Post Operative Brief Note ---
Immediate Operative Summary Operative Date Sep 12, 2017. Pre-Operative Diagnosis Right ureteral stone and hydronephrosis Post-Operative Diagnosis same as preop Procedure(s) Performed Cystoscopy, Right Retrograde Pyelogram, Placement of Right Ureteral Stent Surgeon Dr. Cerda Nuclear Plant Technical Advisor Surgeon(s) none Estimated Blood Loss none Findings large prostate proximal obstructing stone Specimens none
[2017-09-12 11:21] VITALS: BP 156/76; PULSE 91; TEMP 36.9; O2SAT 95
--- NOTE | 2017-09-12 11:36 | OPERATIVE REPORT ---
DATE OF OPERATION: 09/12/2017 PROCEDURE PERFORMED: Cystoscopy and right stent placement. INDICATIONS: Proximal right ureteral stone and ongoing renal colic. HISTORY OF PRESENTATION: The patient presented with a 78-mm proximal right renal stone on September 10. He was not having pain initially. We gave him yesterday to see whether his pain would resolve, but it is ongoing, so we elected to place a stent in preparation for lithotripsy next week. Discussed the options, but given the stone is proximal and given that the staffing elected to place a stent in preparation for ESWL. The patient understood the risks and agreed to proceed. DESCRIPTION OF THE PROCEDURE: The patient was taken to the cystoscopy suite where general anesthesia was administered. After Venodyne stockings were placed, he was given ciprofloxacin. He was placed in dorsal lithotomy position after general anesthesia was administered and was prepped and draped in the usual sterile fashion and a 21-Setswana cystoscope was attempted to pass per urethra, but the meatus was somewhat small, so the meatus was dilated with a 17-Setswana and then 21-Setswana was passed with some difficulty. Once inside the bladder, there were no strictures in the urethra. The prostate was mildly obstructing with a very high bladder neck. Once inside the bladder, the angle of the ureteral opening was impossible to cannulate with a 30-degree lens, so I used a 70-degree lens with deflecting bridge. I was able to get a guidewire and then the open-ended catheter over the guidewire, removed the guidewire and did a retrograde. I saw an obstruction in the proximal ureter where the stone was with a [id number] hydro, placed the guidewire through the open-ended catheter beyond the stone into the renal pelvis, removed the open-ended catheter and then placed a 5-Setswana 26 cm stent with 1 curl in the kidney and another curl in the bladder. The wire was removed. The patient's bladder was emptied. The position of the stent in the renal pelvis was confirmed with fluoroscopy. I could see that curl in the bladder. The patient was transferred to the recovery room in stable condition. I attest to the content of the Intraoperative Record and any orders documented therein. Any exception s are noted below.
[2017-09-12 11:53] VITALS: BP 145/76; PULSE 94; O2SAT 94
--- NOTE | 2017-09-12 11:54 | Progress Note ---
Subjective Date of Service: Sep 12, 2017. Subjective Pt evaluation today including: conversation w/ patient, conversation w/ family , physical exam, chart review, lab review, review of inpatient medication list Pain: 3 Voiding: no voiding problems Pt is s/p cystoscopy and uretal stent placement. Pt is doing well after the procedure. Pt has some discomfort and pain. Problem List Medical Problems: (1) Hydronephrosis, right Status: Acute (2) Intractable pain Status: Acute (3) Right ureteral stone Status: Acute Review of Systems Constitutional: No fever, No chills Eyes: No worsening of vision ENT: No hearing loss Respiratory: No cough, No sputum, No wheezing, No shortness of breath Male : + hematuria, No dysuria, No urinary frequency, No incontinence Neurologic: No memory loss, No paralysis Psychiatric: No depression symptoms Endo: No fatigue Skin: No rash Medications Medications (Trade) Dose Ordered Sig/Dorita Route Start Time Stop Time Status Last Admin Dose Admin Zolpidem Tartrate (Ambien Tab) 10 mg HS PO 09/11/17 21:00 10/11/17 20:59 09/11/17 21:46 10 MG Hydromorphone HCl (Dilaudid Inj) 1 mg Q2H PRN IV 09/11/17 22:15 09/25/17 22:14 09/12/17 07:39 1 MG Iothalamate Meglumine (Conray 30%) 150 ml STK-MED ONCE .ROUTE 09/12/17 09:10 09/12/17 09:11 DC 09/12/17 10:10 5 ML Ciprofloxacin/ Dextrose (Cipro / D5W) 400 mg STK-MED ONCE .ROUTE 09/12/17 09:34 09/12/17 09:35 DC 09/12/17 09:37 400 MG Objective Vital Signs Date Time Temp Pulse Resp B/P (MAP) Pulse Ox O2 Delivery O2 Flow Rate FiO2 09/12/17 11:21 36.9 91 16 156/76 (102) 95 Nasal Cannula 2.0 09/12/17 11:20 Nasal Cannula 2.0 09/12/17 11:05 36.4 88 16 146/70 93 Nasal Cannula 3 09/12/17 10:55 94 16 139/66 93 Nasal Cannula 3 09/12/17 10:45 84 14 133/68 93 Nasal Cannula 3 09/12/17 10:35 85 14 127/67 92 Oxymask 10 09/12/17 10:28 36.6 90 12 130/64 95 Oxymask 10 09/12/17 08:00 Room Air 09/12/17 07:00 37.4 67 18 156/93 (114) 90 Room Air 09/12/17 00:20 97 Room Air 2.0 Nasal Cannula 09/11/17 22:48 36.9 67 16 151/78 (102) 90 Room Air 09/11/17 16:00 Room Air 09/11/17 15:00 36.9 67 18 108/65 (79) 90 Room Air Physical Exam General Appearance: WD/WN, no apparent distress Eyes: EOMI Respiratory/Chest: chest non-tender, lungs clear, normal breath sounds, no accessory muscle use Cardiovascular: regular rate, rhythm, no edema, no murmur Abdomen: normal bowel sounds, non tender, soft Neurologic/Psychiatric: display mechanic II-XII nml as tested, no motor/sensory deficits, alert, normal mood/affect, oriented x 3 Skin: no rash Lymphatic: no adenopathy Assessment and Plan 72 y/o M Hx HTN, HPL, GERD. Presents with progressive, severe R sided flank pain radiating into his groin. Pain is accompanied by nausea and a few episodes of vomiting. He denies fevers, rigors, dysuria, gross hematuria. A CT abdomen revealed a 7mm obstructing calculus in the proximal R ureter with accompanying hydronephrosis. 1) Obstructing calculus - unlikely to pass spontaneously based on size. s/p Right ureteral stent. Pain controlled. He is placed on IVF, narcotics and Flomax. 2) HTN - Norvasc 3) HPL - cont Lipitor Continued [facility] stay due to: multiple IV medications needed Discharge planning: home
--- NOTE | 2017-09-12 12:00 | NUR ---
OBS: Patient is alert and oriented x 4. On room air, clear. Tolerating a regular diet. Post-op fluids currently infusing. OOB independently. No complaints of pain. Has not complained of any nausea. Discharge home today.
[2017-09-12 12:26] VITALS: BP 147/72; PULSE 94
[2017-09-12] MEDS ORDERED: TRAM-453 PO ×2 (13:00)
--- NOTE | 2017-09-12 13:03 | Discharge Instructions ---
Discharge Instructions Date of Service Sep 12, 2017. Admission Reason for Admission: Hydronephrosis With Obstructing Calculus, Discharge Discharge Diagnosis / Problem: right kidney stone s/p right uretral stent Discharge Goals Goal(s): Decrease discomfort, Improve function, Improve disease control, Diagnostic testing, Therapeutic intervention Activity Recommendations Activity Limitations: resume your previous activity . Current Hospital Diet Patient's current hospital diet: Regular Diet Discharge Diet Recommended Diet: AHA Diet (Heart Healthy) Procedures Procedures Performed: Cystoscopy, Right Retrograde Pyelogram, Placement of Right Ureteral Stent Pending Studies Studies pending at discharge: no Medical Emergencies . Who to Call and When: Medical Emergencies: If at any time you feel your situation is an emergency, please call 911 immediately. . Non-Emergent Contact Non-Emergency issues call your: Primary Care Provider Call Non-Emergent contact if: temperature is above 101, your pain is not controlled . . "Provider Documentation" section prepared by Barbara Burton . VTE Core Measure Inpt VTE Proph given/why not?: SCD's
--- NOTE | 2017-09-12 13:16 | Discharge Summary ---
Discharge Summary Date of Service Sep 12, 2017. Discharge Summary Admission Date: Sep 11, 2017 at 02:56 Discharge Date: Sep 12, 2017 Discharge Disposition: Home Principal Diagnosis: right uretral stone s/p uretral stent Immunizations: Have You Had Influenza Vaccine: Yes History of Tetanus Vaccine?: Yes History of Pneumococcal: Yes Pneumococcal Date: February 05, 2010 History of Hepatitis B Vaccine: No Medication Reconciliation New Medications: Tramadol Hcl (Ultram) 50 Mg Tab 50 MG PO Q8H for 3 Days, #9 TAB PRN PAIN Continued Medications: Amlodipine (Norvasc) 5 Mg Tab 5 MG PO QAM, TAB Atorvastatin (Atorvastatin Calcium) 10 Mg Tab 10 MG PO QAM Cholecalciferol (Vitamin D3) 2,000 Unit Tab 2000 UNITS PO QAM Fish Oil ([place]-3) 1 Ea Cap 1 CAP PO QAM Lansoprazole (Prevacid) 15 Mg Cap 15 MG PO QAM, CAP Multiple Vitamin (Multivitamin) 1 Tab Tab 1 TAB PO QAM Sertraline (Zoloft) 50 Mg Tab 75 MG PO QAM, TAB Zolpidem Tartrate (Zolpidem Tartrate) 10 Mg Tab 10 MG PO HS Referrals At Discharge Follow up Referrals: Urologist Referral - Within 1 Week [facility] with Kevin Cerda M.D. Hospital Course 72 y/o M Hx HTN, HPL, GERD. Presents with progressive, severe R sided flank pain radiating into his groin. Pain is accompanied by nausea and a few episodes of vomiting. He denies fevers, rigors, dysuria, gross hematuria. A CT abdomen revealed a 7mm obstructing calculus in the proximal R ureter with accompanying hydronephrosis. We will give prn ultram for breakthrough pain, patient is stable per urology to discharge. 1) Obstructing calculus - unlikely to pass spontaneously based on size. s/p Right ureteral stent. Pain controlled. He is placed on IVF, narcotics and Flomax. 2) HTN - Norvasc 3) HPL - cont Lipitor Total Time Spent: Greater than 30 minutes This includes examination of the patient, discharge planning, medication reconciliation, and communication with other providers. Discharge Instructions Please refer to the electronic Patient Visit Report (Discharge Instructions) for additional information. Follow-Up follow up with urology Additional Copies To Kevin Cerda M.D.
[2017-09-12 13:21] VITALS: BP 147/72; PULSE 94; TEMP 36.9; O2SAT 94
== END 2017-09-12 13:58 | disposition home or self-care (01) ==
LOC: C.EDB 00:16 → C.MSW 02:56 → ENRESERV 03:07
PROVIDERS: ADMIT Internal Medicine; ATTEND Internal Medicine
DX: N20.1 Calculus of ureter (principal); I10 Essential (primary) hypertension; M19.90 Unspecified osteoarthritis, unspecified site; Z79.899 Other long term (current) drug therapy; Z98.49 Cataract extraction status, unspecified eye; Z90.89 Acquired absence of other organs; Z96.659 Presence of unspecified artificial knee joint; Z83.3 Family history of diabetes mellitus; Z80.9 Family history of malignant neoplasm, unspecified; Z82.49 Family history of ischemic heart disease and other diseases of the circulatory system

== ENCOUNTER → 2017-09-15 | Outpatient (CLI) | payer BC ==
[~2017-09-15] MED LIST changes: +TRAM-453 PO
--- NOTE | 2017-09-15 16:00 | DIAGNOSTIC IMAGING REPORT ---
TWO VIEW CHEST CLINICAL HISTORY: Preoperative examination. Nephrolithiasis. FINDINGS: PA and lateral chest radiographs are compared to study dated 08/01/2010 and correlated with chest CT dated 02/19/2010. The heart is enlarged and there is atherosclerotic calcification of the thoracic aorta. The pulmonary vasculature is noncongested. There is chronic elevation of the right hemidiaphragm and bibasilar atelectasis. No airspace consolidation is seen typical for pneumonia and there is no pleural effusion. There is no pneumothorax. The skeletal structures are osteopenic. Degenerative change is seen throughout the thoracic spine. IMPRESSION: Cardiomegaly with no active disease in the chest. Electronically signed by: Toni Mckeon M.D. 09/15/2017 3:59 PM Dictated Date/Time: 09/15/2017 3:57 PM
== END | disposition home or self-care (01) ==
LOC: C.RAD 15:14
PROVIDERS: ATTEND Urology
DX: N20.0 Calculus of kidney (principal)

== ENCOUNTER → 2017-09-16 | Outpatient (CLI) | payer BC ==
[~2017-09-16] MED LIST changes: +AMLO-110 PO; -AMLO5TAB3 PO
--- NOTE | 2017-09-16 18:06 | DIAGNOSTIC IMAGING REPORT ---
KUB CLINICAL HISTORY: Nephrolithiasis. Preoperative examination. FINDINGS: 2 AP supine abdominal radiographs are compared to study dated 09/12/2017 and correlated with abdominal CT dictated 09/11/2017. A right ureteral stent is new from previous. There is a 9 mm calculus identified along the proximal aspect of the stent at the level of the L1 transverse process. No additional calcifications are seen along the course of the stent. No calcifications project over the left kidney. Numerous phleboliths are identified in the pelvis. No bowel obstruction is seen. The skeletal structures are osteopenic. Mild to moderate lumbosacral spondylosis is observed. IMPRESSION: 1. A right ureteral stent has been placed. A 9 L calcification is seen along the proximal aspect of the stent at the level of the L1 transverse process. 2. No additional renal calculi are clearly identified. Electronically signed by: Toni Mckeon M.D. 09/16/2017 6:04 PM Dictated Date/Time: 09/16/2017 6:03 PM
== END | disposition home or self-care (01) ==
LOC: C.RAD 17:39
PROVIDERS: ATTEND Urology
DX: N20.0 Calculus of kidney (principal)

== ENCOUNTER → 2017-09-17 | Day surgery (SDC) | payer BC ==
[2017-09-16 11:10] VITALS: Ht 170.2 cm; Wt 109.1 kg
[~2017-09-17] VITALS: Ht 170.2 cm; Wt 109.1 kg
[~2017-09-17] MED LIST changes: -AMLO-110 PO; +AMLO5TAB3 PO; +ATROPINE SULFATE 0.1 MG/ML 5ML SYR IV PRN; +CIPROFLOXACIN 400MG / D5W IV SCH; +EpHEDrine SULFATE INJ 50 MG/ML AMP IV PRN; +EpHEDrine SULFATE INJ 50 MG/ML AMP ONE; +FENTANYL CITRATE INJ 50 MCG/1 ML 2 ML VIAL IV PRN; +FENTANYL CITRATE INJ 50 MCG/1 ML 2 ML VIAL ONE; +HYDROmorphone INJ 1 MG/ML SYR IV PRN; +LACTATED RINGER'S 1000ML 1,000 ML IV SCH; +LIDOCAINE HCL 2% 2 ML VIAL (20MG/ML) ONE; +MIDAZOLAM HCL 1 MG/ML 2ML VIAL ONE; +ONDANSETRON INJ 2 MG/ML 2 ML VIAL IV PRN; +OXYCODONE/ACETAMINOPHEN 5-325 TAB PO PRN; +PROPOFOL IV EMULSION 10 MG/ML 20 ML VIAL IV ONE; +SODIUM CHLORIDE 0.9% INJ 10 ML VIAL ONE; -TRAM-453 PO
--- NOTE | 2017-09-17 08:07 | History & Physical Bridge Note ---
H&P Re-Evaluation Bridge Note: I have examined the patient, reviewed the History & Physical and in the interval since the performance of the History & Physical I have noted the following changes of clinical significance: No changes noted
--- NOTE | 2017-09-17 09:36 | Discharge Instructions ---
Discharge Instructions Date of Service Sep 17, 2017. Admission Reason for Admission: Stones Discharge Discharge Diagnosis / Problem: Left renal stones s/p ESWL Discharge Goals Goal(s): Decrease discomfort, Improve function, Improve disease control, Therapeutic intervention Activity Recommendations Activity Limitations: as noted below Lifting Limitations: no more than 25 pounds, gradually increase as tolerated Exercise/Sports Limitations: rest today, gradually increase as tolerated May Resume Sexual Activity: when tolerated Shower/Bathe: no limitations Driving or Machine Use: resume 1 day after discharge . Instructions / Follow-Up Instructions / Follow-Up Strain urine as instructed. Follow-up in office as planned with KUB Xray prior. Current Hospital Diet Patient's current hospital diet: Discharge Diet Recommended Diet: Regular Diet (good fluid intake) Procedures Procedures Performed: Right Extracorporeal Shock Wave Lithotripsy Pending Studies Studies pending at discharge: no Medical Emergencies . Who to Call and When: Medical Emergencies: If at any time you feel your situation is an emergency, please call 911 immediately. . Non-Emergent Contact Non-Emergency issues call your: Urologist Call Non-Emergent contact if: you have a fever, temperature is above 101, your pain is not controlled, your pain is worsening, your pain is unusual for you, your pain is concerning you, you have any medication questions . . "Provider Documentation" section prepared by Lexx Murphy. . VTE Core Measure Inpt VTE Proph given/why not?: SCD's
--- NOTE | 2017-09-17 09:49 | [facility] Post Operative Brief Note ---
Immediate Operative Summary Operative Date Sep 17, 2017. Pre-Operative Diagnosis Right Renal Stone with indwelling stent Post-Operative Diagnosis Same Procedure(s) Performed Right Extracorporeal Shock Wave Lithotripsy Surgeon Dr. Roopa Murphy Continuity Director Surgeon(s) None Estimated Blood Loss 0 Findings Excellent stone fragmentation on fluoro. Specimens None Drains Indwelling stent Anesthesia GALMA Complication(s) None Disposition Recovery Room / PACU
--- NOTE | 2017-09-17 10:02 | OPERATIVE REPORT ---
DATE OF OPERATION: 09/17/2017 PREOPERATIVE DIAGNOSIS: Right 9 mm renal stone with indwelling stent. POSTOPERATIVE DIAGNOSIS: Same. PROCEDURE: Right-sided renal extracorporeal shockwave lithotripsy. SURGEON: Dr. Lexx Murphy. GRAIN HANDLER: None. ANESTHESIA: General anesthesia with laryngeal mask. COMPLICATIONS: None. FINDINGS: Excellent stone fragmentation on fluoroscopy. DETAILS OF PROCEDURE: The patient was brought to the litho suite. He was correctly identified and the stone was visualized on his most recent x-rays. After the correct time out was performed the patient was positioned over the therapy head. An adequate level of anesthesia was administered. The extracorporeal shockwave lithotripsy treatment was then commenced. Please see the [facility] sheet for complete treatment summary. After completion of the procedure the patient was taken to the recovery room in stable condition. I attest to the content of the Intraoperative Record and any orders documented therein. Any exception s are noted below.
[2017-09-17 10:23] VITALS: TEMP 36.8
[2017-09-17 10:43] VITALS: BP 134/83; PULSE 73; O2SAT 95
--- NOTE | 2017-09-17 10:59 | Anesthesiology Progress Note ---
Anesthesia Post Op Note Date & Time Sep 17, 2017 at 10:59 Vital Signs Pain Intensity: 0 Vital Signs Past 12 Hours Date Time Temp Pulse Resp B/P (MAP) Pulse Ox O2 Delivery O2 Flow Rate FiO2 09/17/17 10:43 73 16 134/83 (100) 95 Room Air 09/17/17 10:23 36.8 75 18 135/75 (95) 96 Room Air 09/17/17 10:15 36.8 142/74 09/17/17 10:14 80 18 96 09/17/17 10:14 80 18 09/17/17 10:10 133/70 09/17/17 10:09 79 15 96 09/17/17 10:09 84 15 09/17/17 10:05 133/75 09/17/17 10:04 85 20 09/17/17 10:04 83 20 97 09/17/17 10:00 131/74 09/17/17 09:59 85 18 09/17/17 09:59 84 18 99 09/17/17 09:55 131/71 09/17/17 09:54 83 23 09/17/17 09:54 85 23 97 09/17/17 09:50 128/72 09/17/17 09:50 36.2 78 20 125/74 97 Mask 6 09/17/17 09:49 125/74 09/17/17 07:21 36.7 83 20 127/86 (100) 94 Room Air Notes Mental Status: alert / awake / arousable, participated in evaluation Pt Amnestic to Procedure: Yes Nausea / Vomiting: adequately controlled Pain: adequately controlled Airway Patency, RR, SpO2: stable & adequate BP & HR: stable & adequate Hydration State: stable & adequate Anesthetic Complications: no major complications apparent
== END | disposition home or self-care (01) ==
LOC: X.SURG 07:07
PROVIDERS: ATTEND Urology
DX: N20.2 Calculus of kidney with calculus of ureter (principal); M19.90 Unspecified osteoarthritis, unspecified site; E78.5 Hyperlipidemia, unspecified; I10 Essential (primary) hypertension; K21.9 Gastro-esophageal reflux disease without esophagitis; F33.9 Major depressive disorder, recurrent, unspecified; Z98.49 Cataract extraction status, unspecified eye; Z90.89 Acquired absence of other organs; Z96.659 Presence of unspecified artificial knee joint; Z82.49 Family history of ischemic heart disease and other diseases of the circulatory system; Z83.3 Family history of diabetes mellitus; Z83.6 Family history of other diseases of the respiratory system; Z87.442 Personal history of urinary calculi

== ENCOUNTER → 2017-09-29 | Outpatient (CLI) | payer BC ==
[~2017-09-29] MED LIST changes: +AMLO-110 PO; -AMLO5TAB3 PO; -ATROPINE SULFATE 0.1 MG/ML 5ML SYR IV PRN; -CIPROFLOXACIN 400MG / D5W IV SCH; -EpHEDrine SULFATE INJ 50 MG/ML AMP IV PRN; -EpHEDrine SULFATE INJ 50 MG/ML AMP ONE; -FENTANYL CITRATE INJ 50 MCG/1 ML 2 ML VIAL IV PRN; -FENTANYL CITRATE INJ 50 MCG/1 ML 2 ML VIAL ONE; -HYDROmorphone INJ 1 MG/ML SYR IV PRN; -LACTATED RINGER'S 1000ML 1,000 ML IV SCH; -LIDOCAINE HCL 2% 2 ML VIAL (20MG/ML) ONE; -MIDAZOLAM HCL 1 MG/ML 2ML VIAL ONE; -ONDANSETRON INJ 2 MG/ML 2 ML VIAL IV PRN; -OXYCODONE/ACETAMINOPHEN 5-325 TAB PO PRN; -PROPOFOL IV EMULSION 10 MG/ML 20 ML VIAL IV ONE; -SODIUM CHLORIDE 0.9% INJ 10 ML VIAL ONE
== END | disposition home or self-care (01) ==
LOC: C.LABSPEC 17:40
PROVIDERS: ATTEND Urology
DX: N20.0 Calculus of kidney (principal)

== ENCOUNTER → 2017-09-29 | Outpatient (CLI) | payer BC ==
--- NOTE | 2017-09-29 12:00 | DIAGNOSTIC IMAGING REPORT ---
KUB HISTORY: Right-sided stent. STONE COMPARISON: KUB 09/16/2017. FINDINGS: The bowel gas pattern is unremarkable. There are no dilated loops of small bowel to suggest an obstruction. There is again noted a right ureteral stent which appears to be in good position. There is a 6 mm stone seen within the proximal to mid right ureter overlying the right L3 transverse process. This has passed approximately 6 cm distal from the prior study. Multiple pelvic phleboliths are again noted. No left-sided renal calculi. Suspect additional calculi within the lower pole the right kidney. There are partially obscured by overlying bowel gas. No pneumoperitoneum or pneumatosis. IMPRESSION: 1. The 6 mm right ureteral stone now resides within the proximal to mid ureter at the level of the L3 transverse process. 2. Suspect a few additional calculi within the lower pole of the right kidney. 3. The right ureteral stent is unchanged in position. Electronically signed by: Clive Acosta M.D. 09/29/2017 11:59 AM Dictated Date/Time: 09/29/2017 11:57 AM
== END | disposition home or self-care (01) ==
LOC: C.RAD 10:53
PROVIDERS: ATTEND Urology
DX: N20.0 Calculus of kidney (principal)

== ENCOUNTER → 2017-10-14 | Outpatient (CLI) | payer BC ==
--- NOTE | 2017-10-14 12:07 | DIAGNOSTIC IMAGING REPORT ---
KUB CLINICAL HISTORY: N20.1 Ureteric [id number] nephrocalcinosis COMPARISON STUDY: 09/29/2017 FINDINGS: Right ureteral stent remains in good position. Calcification previous described within the mid right ureter is no longer present. This may have passed. Calcifications previously described overlying the right kidney are not easily appreciated currently. Left kidney is unremarkable. IMPRESSION: 1. Apparent interval passage of the 6 mm calculus previously described in the mid right ureter. 2. Right ureteral stent remains in good position. 3. No significant nephrocalcinosis on the current study The above report was generated using voice recognition software. It may contain grammatical, syntax or spelling errors. Electronically signed by: Leo Giron M.D. 10/14/2017 12:05 PM Dictated Date/Time: 10/14/2017 12:04 PM
== END | disposition home or self-care (01) ==
LOC: C.RAD 11:34
PROVIDERS: ATTEND Urology
DX: N20.1 Calculus of ureter (principal); Z96.0 Presence of urogenital implants

== ENCOUNTER → 2017-12-09 | Outpatient (CLI) | payer BC ==
--- NOTE | 2017-12-09 12:52 | DIAGNOSTIC IMAGING REPORT ---
KUB CLINICAL HISTORY: N20.0 [id number] COMPARISON STUDY: 10/14/2017 FINDINGS: The right-sided nephroureteral stent has been removed. There are no calcifications suspicious for renal calculi. Pelvic basin calcifications remain unchanged in orientation and likely represent phleboliths. There is no pathologic bowel dilatation. IMPRESSION: 1. Interval removal of the double-pigtail right-sided neck ureteral stent 2. No urinary tract calculi are visualized on conventional radiographic imaging Electronically signed by: López Allen M.D. 12/09/2017 12:50 PM Dictated Date/Time: 12/09/2017 12:49 PM
== END | disposition home or self-care (01) ==
LOC: C.RAD 12:30
PROVIDERS: ATTEND Urology
DX: N20.0 Calculus of kidney (principal)

== ENCOUNTER → 2017-12-13 | Outpatient (CLI) | payer BC ==
--- NOTE | 2017-12-13 07:30 | DIAGNOSTIC IMAGING REPORT ---
ULTRASOUND KIDNEYS AND BLADDER CLINICAL HISTORY: Ureteral stone. COMPARISON STUDY: Abdominal CT dated 09/11/2017. TECHNIQUE: Real-time, grayscale, and color flow sonography of the kidneys and bladder is performed. Images are reviewed in the transverse and longitudinal planes. FINDINGS: Kidneys: The kidneys demonstrate cortical atrophy and are normal in echotexture. The right kidney measures 11.8 x 6.8 x 6.4 cm and the left kidney measures 11.5 x 6.2 x 5.6 cm. There is no hydronephrosis. No shadowing renal calculi are identified. There is no sonographic evidence of contour deforming renal mass lesion. No perinephric fluid is identified. Bladder: The bladder is decompressed and grossly unremarkable. Bilateral ureteral jets were seen. IMPRESSION: 1. The kidneys demonstrate cortical atrophy and are without hydronephrosis. 2. The bladder was decompressed and grossly unremarkable. Both ureteral jets were seen. Electronically signed by: Toni Mckeon M.D. 12/13/2017 7:28 AM Dictated Date/Time: 12/13/2017 7:27 AM
== END | disposition home or self-care (01) ==
LOC: C.ULTR 06:39
PROVIDERS: ATTEND Urology
DX: N20.1 Calculus of ureter (principal); N26.1 Atrophy of kidney (terminal)

== ENCOUNTER → 2018-02-08 | Outpatient (CLI) | payer BC | END | disposition home or self-care (01) | LOC: C.LAB1850 12:26 | PROVIDERS: ATTEND Nurse Practitioner Adult Health | DX: T14.90XA Injury, unspecified, initial encounter (principal); W57.XXXA Bitten or stung by nonvenomous insect and other nonvenomous arthropods, initial encounter ==

== ENCOUNTER → 2018-04-06 | Outpatient (CLI) | payer BC ==
[~2018-04-06] MED LIST changes: -AMLO-110 PO; +AMLO5TAB3 PO
[2018-04-06 09:37] LABS: BASO % 0.3 %; BASO ABS # 0.02 K/uL (0-0.2); EOS % 2.4 %; EOS ABS # 0.17 K/uL (0-0.5); HEMATOCRIT 38.8 % (42-52); IG# 0.01 K/uL (0.00-0.02); LYMPH % 28.5 %; LYMPH ABS # 1.98 K/uL (1.2-3.4); MEAN CELL VOLUME 93.5 fL (80-100); MEAN CORPUSCULAR HEMOGLOBIN 31.3 pg (25-34); MEAN CORPUSCULAR HGB CONC 33.5 g/dl (32-36); MEAN PLATELET VOLUME 10.7 fL (7.4-10.4); MONO % 8.4 %; MONO ABS # 0.58 K/uL (0.11-0.59); NEUT % 60.3 %; NEUT ABS # 4.18 K/uL (1.4-6.5); PLATELET COUNT 187 K/uL (130-400); RED CELL DISTRIBUTION WIDTH CV 14.1 % (11.5-14.5); WHITE BLOOD COUNT 6.94 K/uL (4.8-10.8)
[2018-04-06 10:27] LABS: ALBUMIN 3.2 gm/dl (3.4-5.0); ALKALINE PHOSPHATASE 91 U/L (45-117); ALT/SGPT 21 U/L (12-78); AST/SGOT 14 U/L (15-37); BLOOD UREA NITROGEN 15 mg/dl (7-18); CALCIUM 8.3 mg/dl (8.5-10.1); CARBON DIOXIDE 26 mmol/L (21-32); CHOLESTEROL 140 mg/dl (0-200); CREATININE 0.78 mg/dl (0.60-1.40); GLUCOSE 85 mg/dl (70-99); LDL CHOLESTEROL CALCULATED 69 mg/dl; POTASSIUM 3.6 mmol/L (3.5-5.1); SODIUM 142 mmol/L (136-145); TOTAL PROTEIN 6.8 gm/dl (6.4-8.2)
== END | disposition home or self-care (01) ==
LOC: C.LAB 07:14
PROVIDERS: ATTEND Internal Medicine
DX: I10 Essential (primary) hypertension (principal); M13.0 Polyarthritis, unspecified; E78.5 Hyperlipidemia, unspecified; N20.0 Calculus of kidney

== ENCOUNTER → 2018-04-11 | Outpatient (CLI) | payer BC ==
[2018-04-11 12:17] LABS: BASO % 0.1 %; BASO ABS # 0.01 K/uL (0-0.2); EOS % 1.8 %; EOS ABS # 0.13 K/uL (0-0.5); HEMATOCRIT 40.6 % (42-52); HEMOGLOBIN 13.4 g/dL (14.0-18.0); IG# 0.01 K/uL (0.00-0.02); LYMPH % 24.7 %; LYMPH ABS # 1.81 K/uL (1.2-3.4); MEAN CELL VOLUME 93.5 fL (80-100); MEAN CORPUSCULAR HEMOGLOBIN 30.9 pg (25-34); MEAN PLATELET VOLUME 11.2 fL (7.4-10.4); MONO % 7.1 %; MONO ABS # 0.52 K/uL (0.11-0.59); NEUT % 66.2 %; NEUT ABS # 4.84 K/uL (1.4-6.5); PLATELET COUNT 206 K/uL (130-400); WHITE BLOOD COUNT 7.32 K/uL (4.8-10.8)
== END | disposition home or self-care (01) ==
LOC: C.LAB 10:16
PROVIDERS: ATTEND Internal Medicine
DX: D64.89 Other specified anemias (principal)

== ENCOUNTER → 2018-05-04 | Day surgery (SDC) | payer BC ==
[2018-05-02 09:45] VITALS: Ht 172.7 cm; Wt 109.1 kg
[~2018-05-04] VITALS: Ht 172.7 cm; Wt 109.1 kg
[~2018-05-04] MED LIST changes: +SODIUM CHLORIDE 0.9% 500ML 500 ML IV ONE
--- NOTE | 2018-05-04 12:53 | Endo History and Physical ---
History & Physical Date of Service: May 04, 2018. Chief Complaint: anemia, positive fecal occult Referring Physician: Dr. Melquiades Craig History of Present Illness 72 yo CM who presents for colonoscopy secondary to anemia and heme + Stool. Past Medical History Reflux, High Cholesterol, Hypertension Past Surgical History Hx Cardiac Surgery: No Hx Internal Defibrillator: No Hx Pacemaker: No Hx Abdominal Surgery: Yes (APPENDECTOMY, HERNIA REPAIR X4) Hx Post-Op Nausea and Vomiting: No Hx Cancer Surgery: No Hx Thoracic Surgery: No Hx Orthopedic: Yes (RIGHT TKA; LEFT CTR) Hx Urinary Tract Surgery: Yes (CYSTO W/URETRAL STENT, LITHOTRIPSY) Family History Polyp Social History Smoking Status: Never Smoker Hx Substance Use: No Hx Alcohol Use: No Allergies Coded Allergies: Telmisartan (Verified Allergy, Intermediate, Throat pain and fever, ) Bupropion (Verified Allergy, Unknown, TWITCHING/JITTERY, 05/02/18) Metoprolol (Verified Allergy, Unknown, TWITCHING, 05/02/18) Valsartan (Verified Allergy, Unknown, HAIR FALL OUT, 05/02/18) Current Medications Reported Home Medications Medications Dose Route/Sig Max Daily Dose Days Date Category Vitamin D3 (Cholecalciferol) 2,000 Unit Tab 2,000 Units PO QAM 05/14/17 Reported [place]-3 (Fish Oil) 1 Ea Cap 1 Cap PO QAM 05/14/17 Reported Multivitamin (Multiple Vitamin) 1 Tab Tab 1 Tab PO QAM 05/14/17 Reported Prevacid (Lansoprazole) 15 Mg Cap 15 Mg PO QAM 11/13/14 Reported Norvasc (Amlodipine Besylate) 5 Mg Tab 5 Mg PO QAM 11/13/14 Reported Lipitor (Atorvastatin Calcium) 10 Mg Tab 10 Mg PO QAM 11/13/14 Reported Zolpidem Tartrate 10 Mg Tab 10 Mg PO HS 11/13/14 Reported Zoloft (Sertraline HCl) 50 Mg Tab 75 Mg PO QAM 11/13/14 Reported Vital Signs Weight (Kilograms): 109.09 Height (Feet): 5 Height (Inches): 8 Date Time Temp Pulse Resp B/P (MAP) Pulse Ox O2 Delivery O2 Flow Rate FiO2 05/04/18 12:28 36.9 78 18 130/79 (96) 95 Room Air Physical Exam General Appearance: WD/WN, no apparent distress Respiratory/Chest: Auscultation: breath sounds normal Cardiovascular: Heart Auscultation: RRR Abdomen: Bowel Sounds: normal Inspection & Palpation: soft, non-distended, no tenderness, guarding & rebound Assessment and Plan Assessment: 72 yo CM who presents for colonoscopy secondary to anemia and heme + Stool. Plan: Proceed with colonoscopy.
[2018-05-04 13:42] VITALS: BP 125/78; PULSE 66; O2SAT 96
--- NOTE | 2018-05-04 13:44 | Anesthesiology Progress Note ---
Anesthesia Post Op Note Date & Time May 04, 2018 at 13:44 Vital Signs Pain Intensity: 0 Vital Signs Past 12 Hours Date Time Temp Pulse Resp B/P (MAP) Pulse Ox O2 Delivery O2 Flow Rate FiO2 05/04/18 13:42 66 20 125/78 (94) 96 Room Air 05/04/18 13:34 70 18 134/74 (94) 97 Room Air 05/04/18 13:20 71 18 107/62 (77) 92 Room Air 05/04/18 12:28 36.9 78 18 130/79 (96) 95 Room Air Notes Mental Status: alert / awake / arousable, participated in evaluation Pt Amnestic to Procedure: Yes Nausea / Vomiting: adequately controlled Pain: adequately controlled Airway Patency, RR, SpO2: stable & adequate BP & HR: stable & adequate Hydration State: stable & adequate Anesthetic Complications: no major complications apparent
--- NOTE | 2018-05-04 14:21 | Discharge Instructions ---
Endoscopy Patient Instructions Date / Procedure(s) Performed May 04, 2018. Colonoscopy Allergy Information Coded Allergies: Telmisartan (Verified Allergy, Intermediate, Throat pain and fever, ) Bupropion (Verified Adverse Reaction, Unknown, TWITCHING/JITTERY, 05/04/18) Metoprolol (Verified Adverse Reaction, Unknown, TWITCHING, 05/04/18) Valsartan (Verified Adverse Reaction, Unknown, HAIR FALL OUT, 05/04/18) Discharge Date / Findings May 04, 2018. Diverticulosis Internal hemorrhoids Medication Instructions Stopped Medication(s): Patient took norvasc, lipitor and zoloft this am. OK to resume all medications today as prescribed Reported Home Medications Medications Dose Route/Sig Max Daily Dose Days Date Category Vitamin D3 (Cholecalciferol) 2,000 Unit Tab 2,000 Units PO QAM 05/14/17 Reported [place]-3 (Fish Oil) 1 Ea Cap 1 Cap PO QAM 05/14/17 Reported Multivitamin (Multiple Vitamin) 1 Tab Tab 1 Tab PO QAM 05/14/17 Reported Prevacid (Lansoprazole) 15 Mg Cap 15 Mg PO QAM 11/13/14 Reported Norvasc (Amlodipine Besylate) 5 Mg Tab 5 Mg PO QAM 11/13/14 Reported Lipitor (Atorvastatin Calcium) 10 Mg Tab 10 Mg PO QAM 11/13/14 Reported Zolpidem Tartrate 10 Mg Tab 10 Mg PO HS 11/13/14 Reported Zoloft (Sertraline HCl) 50 Mg Tab 75 Mg PO QAM 11/13/14 Reported Provider Instructions Activity Restrictions - No exercising or heavy lifting for 24 hours. - Do not drink alcohol the day of the procedure. - Do not drive a car or operate machinery until the day after the procedure. - Do not make any important decisions or sign important papers in 24 hours after the procedure. Following Day: - Return to full activity which may include returning to work/school. Diet Start your diet with liquids and light foods (jello, soup, juice, toast). Then eat your usual diet if not nauseated. Treatment For Common After Affects For mild abdominal pain, bloating, or excessive gas: - Rest - Eat lightly - Lie on right side Follow-Up Information Follow-up with Dr. Melquiades Craig as scheduled Anesthesia Information What You Should Know You have had a procedure that required some medicine to reduce anxiety and discomfort. This treatment is called moderate sedation. After receiving the treatment, you may be sleepy, but you will be able to breathe on your own. The effects of the treatment may last for several hours. Follow these instructions along with Activity/Diet recommendations noted above: * Do NOT do anything where dizziness or clumsiness would be dangerous. * Rest quietly at home today, then you can be up and about tomorrow. * Have a responsible person stay with you the rest of today. * You may have had an I.V. today. If so, you may take the dressing off later today. Recommendations Call your doctor if: * Trouble breathing * Continuous vomiting for more than 24 hours * Temperature above 101 degrees * Severe abdominal pain or bloating * Pain not relieved by pain medicine ordered * There is increased drainage or redness from any incision * A large amount of rectal bleeding greater than 2-3 tablespoons. (If you had a polyp/s removed or have hemorrhoids, a small amount of blood - from the rectum is to be expected.) * You have any unanswered questions or concerns. IN THE EVENT OF A SERIOUS EMERGENCY, GO TO THE NEAREST EMERGENCY ROOM Your discharge instructions were prepared by provider Eugene Fairbanks. Patient Instructions Signature Page Jf Linder Patient (or Guardian) Signature/Date: I have read and understand the instructions given to me by my caregivers. Caregiver/RN/Doctor Signature/Date: The above-named patient and/or guardian has received patient instructions on this date. + Original Patient Signature Page (only) stays with chart. Please make copy for patient.
--- NOTE | 2018-05-04 14:55 | GI REPORT ---
Patient Name: Jf Linder Procedure Date: 05/04/2018 12:55 PM Date of : 1945 Admit Type: Outpatient Age: 72 Gender: Male Attending MD: Eugene Fairbanks DO Procedure: Colonoscopy Providers: Eugene Fairbanks DO Referring MD: Melquiades Craig Indications: Heme positive stool, Iron deficiency anemia Medicines: Monitored Anesthesia Care Complications: No immediate complications. Estimated Blood Loss: Estimated blood loss: none. Procedure: Pre-Anesthesia Assessment: - Prior to the procedure, a History and Physical was performed, and patient medications and allergies were reviewed. The patient's tolerance of previous anesthesia was also reviewed. The risks and benefits of the procedure and the sedation options and risks were discussed with the patient. All questions were answered, and informed consent was obtained. Prior Anticoagulants: The patient has taken aspirin, last dose was 2 days prior to procedure. ASA Grade Assessment: III - A patient with severe systemic disease. After reviewing the risks and benefits, the patient was deemed in satisfactory condition to undergo the procedure. After I obtained informed consent, the scope was passed under direct vision. Throughout the procedure, the patient's blood pressure, pulse, and oxygen saturations were monitored continuously. The scope was introduced through the anus and advanced to the terminal ileum. The colonoscopy was performed without difficulty. The patient tolerated the procedure well. The quality of the bowel preparation was good. The terminal ileum, the appendiceal orifice and the rectum were photographed. Findings: The perianal and digital rectal examinations were normal. Multiple small-mouthed diverticula were found in the sigmoid colon. Non-bleeding internal hemorrhoids were found during retroflexion. The hemorrhoids were small. Impression: - Diverticulosis in the sigmoid colon. - Non-bleeding internal hemorrhoids. - No specimens collected. Recommendation: - Resume previous diet. - Continue present medications. - No repeat colonoscopy due to age and the absence of advanced adenomas. - Return to primary care physician as previously scheduled. Eugene Fairbanks DO 05/04/2018 2:55:11 PM This report has been signed electronically. Note Initiated On: 05/04/2018 12:55 PM Number of Addenda: 0 I attest to the content of the Intraoperative Record and orders documented therein, exceptions below {[id number]}
== END | disposition home or self-care (01) ==
LOC: C.GI 12:09
PROVIDERS: ATTEND Internal Medicine
DX: R19.5 Other fecal abnormalities (principal); D50.9 Iron deficiency anemia, unspecified; K57.30 Diverticulosis of large intestine without perforation or abscess without bleeding; K64.8 Other hemorrhoids; I10 Essential (primary) hypertension; F32.9 Major depressive disorder, single episode, unspecified; K21.9 Gastro-esophageal reflux disease without esophagitis; M19.90 Unspecified osteoarthritis, unspecified site; Z88.1 Allergy status to other antibiotic agents; Z88.8 Allergy status to other drugs, medicaments and biological substances; Z79.899 Other long term (current) drug therapy; E66.9 Obesity, unspecified; Z68.36 Body mass index [BMI] 36.0-36.9, adult; Z83.71 Family history of colonic polyps